=== PATIENT | female | born 1970 | race Caucasian/White ===

== ENCOUNTER 2017-12-31 13:33 | Inpatient (IN) | payer BC ==
[~2017-12-31] VITALS: Ht 157.5 cm; Wt 65.1 kg
[2017-12-31] MEDS ORDERED: IV NORMAL SALINE 1000ML BAG 1,000 ML IV SCH (13:53)
[2017-12-31 13:54] LABS: BILIRUBIN,URINE NEGATIVE (NEG); CLARITY,URINE CLOUDY; COLOR,URINE YELLOW; NITRITE,URINE NEGATIVE (NEG); PROTEIN,URINE 100 mg/dL (NEG-TRACE); UROBILINOGEN,URINE 0.2 mg/dL (0.2 mg/dL)
[2017-12-31] MEDS ORDERED: ONDANSETRON PF 4 MG/2 ML VIAL. IV ONE (14:00)
[2017-12-31] MEDS ORDERED: HYDROmorphone 2 MG/ML VIAL IV ONE (14:00)
[2017-12-31 14:11] LABS: HYALINE CASTS, URINE FEW /HPF; SQUAMOUS EPITHELIAL CELL,UR MOD /LPF
[2017-12-31 14:12] LABS: BACTERIA,URINE 0 /HPF (0-FEW); WBC,URINE >40 /HPF (0-4)
--- NOTE | 2017-12-31 14:14 | PHYS DOC ---
Past Medical History Past Medical History: Anxiety, Depression Additional Past Medical Histor: ADHD Past Surgical History: Hysterectomy (& L oophorectomy) Alcohol Use: Rarely Adult General Chief Complaint Chief Complaint: FLANK PAIN HPI HPI Patient is a 47-year-old female who presents to the emergency department for evaluation. She states she began feeling ill last night, general malaise and some lightheadedness. She developed some right lower and mid abdominal pain last night, which has continued today. She has not had any nausea, vomiting, or diarrhea. She has not had any hematuria or dysuria but has had some urinary frequency. The pain radiates towards her right flank area. There are no alleviating or exacerbating factors to the patient's symptoms except that movement and palpation of her abdomen seemed to worsen her pain. Review of Systems Review of Systems Constitutional: Denies fever or chills [] Eyes: Denies change in visual acuity, redness, or eye pain [] HENT: Denies nasal congestion or sore throat [] Respiratory: Denies cough or shortness of breath [] Cardiovascular: The patient denies any shortness of breath, chest pain, palpitations, or orthopnea [] GI: Denies nausea, vomiting, bloody stools or diarrhea [] : Denies dysuria or hematuria [] Musculoskeletal: Denies back pain or joint pain, other than right flank pain [] Integument: Denies rash or skin lesions [] Neurologic: Denies headache, focal weakness or sensory changes [] Endocrine: Denies polyuria or polydipsia [] All other systems were reviewed and found to be within normal limits, except as documented in this note. Current Medications Current Medications Current Medications Medications (Trade) Dose Ordered Sig/Farooq Start Time Stop Time Status Last Admin Dose Admin Ceftriaxone Sodium 50 ml @ 100 mls/hr 1X ONCE 12/31/17 14:30 12/31/17 14:59 DC Hydromorphone HCl (Dilaudid) 1 mg 1X ONCE 12/31/17 14:00 12/31/17 14:01 DC 12/31/17 14:14 1 MG Ondansetron HCl (Zofran) 4 mg 1X ONCE 12/31/17 14:00 12/31/17 14:01 DC 12/31/17 14:14 4 MG Sodium Chloride 1,000 ml @ 1,000 mls/hr Q1H 12/31/17 13:53 11/22/18 14:52 DC 12/31/17 14:13 1,000 MLS/HR Allergies Allergies Allergies Coded Allergies Type Severity Reaction Last Updated Verified No Known Drug Allergies 12/31/17 No Physical Exam Physical Exam PHYSICAL EXAM: CONSTITUTIONAL: Well developed, well nourished HEAD: normocephalic, atraumatic EENT: PERRL, EOMI. Conjunctivae normal color, sclerae non-icteric; moist mucous membranes. NECK: Supple, non-tender; no meningismus. LUNGS: Lungs CTA, breathing even and unlabored. Normal air movement. HEART: Regular rhythm, tachycardia, No murmur CHEST: No deformity; non-tender ABDOMEN: The abdomen is soft, there is diffuse right-sided tenderness to palpation, both in the right upper quadrant and the right mid and lower abdomen , without rebound tenderness. Bolton sign is absent, although exam is limited secondary to voluntary guarding. The remainder the abdomen is soft and non- tender, no masses or bruits. EXTREM: Normal ROM; no deformity, no calf tenderness. Normal pulses palpable in all extremities. There is no pedal edema. SKIN: No rash; no diaphoresis NEURO: Alert; normal speech and cognition; CN's grossly intact; strength grossly intact without focal deficit. BACK: No reproducible CVA TTP. PSYCHIATRIC: The patient exhibits an anxious affect. Current Patient Data Vital Signs Vital Signs Date Time Temp Pulse Resp B/P (MAP) Pulse Ox O2 Delivery O2 Flow Rate FiO2 12/31/17 14:00 100.1 122 20 146/95 (112) 100 Room Air 100.1 Lab Values Laboratory Tests Test 12/31/17 13:46 12/31/17 14:00 Urine Collection Type Unknown Urine Color Yellow Urine Clarity Cloudy Urine pH 8.0 Urine Specific [place] 1.015 Urine Protein 100 mg/dL (NEG-TRACE) Urine Glucose (UA) Negative mg/dL (NEG) Urine Ketones (Stick) Negative mg/dL (NEG) Urine Blood Moderate (NEG) Urine Nitrite Negative (NEG) Urine Bilirubin Negative (NEG) Urine Urobilinogen Dipstick 0.2 mg/dL (0.2 mg/dL) Urine Leukocyte Esterase Large (NEG) Urine RBC 11-20 /HPF (0-2) Urine WBC >40 /HPF (0-4) Urine Squamous Epithelial Cells Mod /LPF Urine Bacteria 0 /HPF (0-FEW) Urine Hyaline Casts Few /HPF Urine Mucus Mod /LPF White Blood Count 12.1 x10^3/uL (4.0-11.0) H Red Blood Count 4.10 x10^6/uL (3.50-5.40) Hemoglobin 13.8 g/dL (12.0-15.5) Hematocrit 40.0 % (36.0-47.0) Mean Corpuscular Volume 98 fL (79-100) Mean Corpuscular Hemoglobin 34 pg (25-35) Mean Corpuscular Hemoglobin Concent 34 g/dL (31-37) Red Cell Distribution Width 14.0 % (11.5-14.5) Platelet Count 211 x10^3/uL (140-400) Neutrophils (%) (Auto) 85 % (31-73) H Lymphocytes (%) (Auto) 6 % (24-48) L Monocytes (%) (Auto) 8 % (0-9) Eosinophils (%) (Auto) 0 % (0-3) Basophils (%) (Auto) 1 % (0-3) Neutrophils # (Auto) 10.2 x10^3uL (1.8-7.7) H Lymphocytes # (Auto) 0.8 x10^3/uL (1.0-4.8) L Monocytes # (Auto) 1.0 x10^3/uL (0.0-1.1) Eosinophils # (Auto) 0.0 x10^3/uL (0.0-0.7) Basophils # (Auto) 0.1 x10^3/uL (0.0-0.2) Sodium Level 133 mmol/L (136-145) L Potassium Level 4.0 mmol/L (3.5-5.1) Chloride Level 98 mmol/L (98-107) Carbon Dioxide Level 29 mmol/L (21-32) Anion Gap 6 (6-14) Blood Urea Nitrogen 6 mg/dL (7-20) L Creatinine 1.0 mg/dL (0.6-1.0) Estimated GFR (Cockcroft-Gault) 60.0 BUN/Creatinine Ratio 6 (6-20) Glucose Level 127 mg/dL (70-99) H Lactic Acid Level 1.4 mmol/L (0.4-2.0) Calcium Level 9.2 mg/dL (8.5-10.1) Total Bilirubin 0.7 mg/dL (0.2-1.0) Aspartate Amino Transferase (AST) 17 U/L (15-37) Alanine Aminotransferase (ALT) 29 U/L (14-59) Alkaline Phosphatase 91 U/L (46-116) Total Protein 8.1 g/dL (6.4-8.2) Albumin 3.3 g/dL (3.4-5.0) L Albumin/Globulin Ratio 0.7 (1.0-1.7) L Lipase 127 U/L (73-393) Laboratory Tests 12/31/17 14:00 Laboratory Tests 12/31/17 14:00 EKG EKG [] Radiology/Procedures Radiology/Procedures [PROCEDURE: CT ABDOMEN PELVIS WO CONTRAST CT abdomen and pelvis 12/31/2017 CLINICAL INDICATION: Right flank pain, left upper and right lower quadrant pain. COMPARISON: None. TECHNIQUE: Multiple CT images of the abdomen and pelvis were obtained without contrast. *One or more of the following individualized dose reduction techniques were utilized for this examination: 1. Automated exposure control. 2. Adjustment of the mA and/or kV according to patient size. 3. Use of iterative reconstruction technique. FINDINGS: Collapsed left breast implant. Right breast implant is partially visualized. Heart size is normal. Visualized lung bases are clear. Evaluation of the solid abdominal pelvic viscera, lymphadenopathy and vasculature is limited in the absence of intravenous contrast. Peripheral hepatic segment 8 cyst and peripheral junction by 5/6 cyst. Unenhanced contours of the spleen, adrenal glands, gallbladder and pancreas are grossly unremarkable. There is a 3 mm obstructive calculus in the proximal right ureter just distal to the UPJ with mild resultant upstream hydroureteronephrosis and perinephric stranding. 2 additional nonobstructive 3 mm calculi in the superior and inferior pole the right kidney. Left kidney present without hydronephrosis. There are 2 punctate nonobstructive left renal calculi measuring 3 mm. Abdominal aorta normal in caliber. Small and large bowel loops are normal in caliber without obstruction. Appendix is not discretely identified, however no secondary findings of appendicitis of the base of the cecum. No abdominal free fluid. No pneumoperitoneum. Minimally distended unopacified urinary bladder is unremarkable. Prior hysterectomy with the vaginal cuff unremarkable. IMPRESSION: 1. Tiny, 3 mm, proximal right ureteral obstructive calculus with mild upstream hydroureteronephrosis. 2. Right perinephric/periureteral stranding may be reactive to the stone, though ascending urinary tract infection is not excluded. 3. Additional nonobstructive bilateral nephrolithiasis. ] Course & Med Decision Making Course & Med Decision Making 2:05 PM: Initial evaluation in the emergency Department reveals a patient with right-sided abdominal pain, tachycardia, some lightheadedness yesterday. Differential diagnosis includes acute cholecystitis, appendicitis, nephrolithiasis, or UTI. Evaluation for these conditions will be undertaken. Based on the patient's lower abdominal tenderness CT imaging will be obtained first. 3:10 PM:The patient's condition remains stable. I spoke with the hospitalist, who accepted the patient to the hospital for further evaluation and treatment. Urology has been paged as well. Pertinent Labs and Imaging studies reviewed. (See chart for details) [] Dragon Disclaimer Dragon Disclaimer This electronic medical record was generated, in whole or in part, using a voice recognition dictation system. Departure Departure Impression: Primary Impression: Pyelonephritis Additional Impressions: Urinary tract infection Kidney stone on right side Disposition: ADMITTED INPATIENT Admitting Physician: Xie. Burns Condition: STABLE Problem Qualifiers STONEY BOOTH MD Dec 31, 2017 14:14
[2017-12-31 14:22] LABS: BASO # 0.1 x10^3/uL (0.0-0.2); BASO % 1 % (0-3); EOS % 0 % (0-3); HEMOGLOBIN 13.8 g/dL (12.0-15.5); LYMPH # 0.8 x10^3/uL (1.0-4.8); LYMPH % 6 % (24-48); MEAN CORPUSCULAR HEMOGLOBIN 34 pg (25-35); MEAN CORPUSCULAR HGB CONC 34 g/dL (31-37); MEAN CORPUSCULAR VOLUME 98 fL (79-100); MONO % 8 % (0-9); NEUT # 10.2 x10^3uL (1.8-7.7); NEUT % 85 % (31-73); PLATELET COUNT 211 x10^3/uL (140-400); WHITE BLOOD COUNT 12.1 x10^3/uL (4.0-11.0)
[2017-12-31 14:33] LABS: CALCIUM 9.2 mg/dL (8.5-10.1)
--- NOTE | 2017-12-31 14:45 | RAD ---
CT abdomen and pelvis 12/31/2017 CLINICAL INDICATION: Right flank pain, left upper and right lower quadrant pain. COMPARISON: None. TECHNIQUE: Multiple CT images of the abdomen and pelvis were obtained without contrast. *One or more of the following individualized dose reduction techniques were utilized for this examination: 1. Automated exposure control. 2. Adjustment of the mA and/or kV according to patient size. 3. Use of iterative reconstruction technique. FINDINGS: Collapsed left breast implant. Right breast implant is partially visualized. Heart size is normal. Visualized lung bases are clear. Evaluation of the solid abdominal pelvic viscera, lymphadenopathy and vasculature is limited in the absence of intravenous contrast. Peripheral hepatic segment 8 cyst and peripheral junction by 5/6 cyst. Unenhanced contours of the spleen, adrenal glands, gallbladder and pancreas are grossly unremarkable. There is a 3 mm obstructive calculus in the proximal right ureter just distal to the UPJ with mild resultant upstream hydroureteronephrosis and perinephric stranding. 2 additional nonobstructive 3 mm calculi in the superior and inferior pole the right kidney. Left kidney present without hydronephrosis. There are 2 punctate nonobstructive left renal calculi measuring 3 mm. Abdominal aorta normal in caliber. Small and large bowel loops are normal in caliber without obstruction. Appendix is not discretely identified, however no secondary findings of appendicitis of the base of the cecum. No abdominal free fluid. No pneumoperitoneum. Minimally distended unopacified urinary bladder is unremarkable. Prior hysterectomy with the vaginal cuff unremarkable. IMPRESSION: 1. Tiny, 3 mm, proximal right ureteral obstructive calculus with mild upstream hydroureteronephrosis. 2. Right perinephric/periureteral stranding may be reactive to the stone, though ascending urinary tract infection is not excluded. 3. Additional nonobstructive bilateral nephrolithiasis. Electronically signed by: Pineda Grissom MD (12/31/2017 2:41 PM) [facility]
[2017-12-31 14:47] LABS: ALBUMIN 3.3 g/dL (3.4-5.0); ALBUMIN/GLOBULIN RATIO 0.7 (1.0-1.7); TOTAL BILIRUBIN 0.7 mg/dL (0.2-1.0); TOTAL PROTEIN 8.1 g/dL (6.4-8.2)
[2017-12-31] MEDS ORDERED: IV NORMAL SALINE 1000ML BAG 1,000 ML IV ONE (15:15)
[2017-12-31] MEDS ORDERED: KETOROLAC 30 MG/ML VIAL. IV ONE (15:45)
--- NOTE | 2017-12-31 16:13 | PDOC1 ---
History and Physical Date of Admission Date of Admission 12/30/17 Identification/Chief Complaint Chief Complaint rt abd pain Source Source: Chart review, Patient History of Present Illness History of Present Illness HPI HPI Patient is a 47-year-old female who presents to the emergency department for evaluation of RLQ abd pain x1d. pt has h/o kidney stones multiple times years ago, not clear etiology. She started to feel RLQ abd pain last night, stabbing ,intermittent, 10/10, radiating to rt flank. no dysuria, but has frequency, no urgency. no N/V, no diarrhea or constipation. no hematuria. wbd 12. HR 110S. CT: IMPRESSION: 1. Tiny, 3 mm, proximal right ureteral obstructive calculus with mild upstream hydroureteronephrosis. 2. Right perinephric/periureteral stranding may be reactive to the stone, though ascending urinary tract infection is not excluded. 3. Additional nonobstructive bilateral nephrolithiasis. Past Medical History Past Medical History KIDNEY stone Past Surgical History Past Surgical History: Hysterectomy Family History Family History: Hypertension Social History Smoke: 1 pack per day ALCOHOL: heavy (a few bottles of mixed vodka daily ,denies alcohol withdrawal) Drugs: None Current Problem List Problem List Problems Medical Problems: (1) Kidney stone on right side Status: Acute (2) Pyelonephritis Status: Acute (3) Urinary tract infection Status: Acute Current Medications Current Medications Current Medications Medications (Trade) Dose Ordered Sig/Farooq Start Time Stop Time Status Last Admin Dose Admin Ceftriaxone Sodium 50 ml @ 100 mls/hr 1X ONCE 12/31/17 14:30 12/31/17 14:59 DC 12/31/17 15:15 100 MLS/HR Hydromorphone HCl (Dilaudid) 1 mg 1X ONCE 12/31/17 14:00 12/31/17 14:01 DC 12/31/17 14:14 1 MG Ketorolac Tromethamine (Toradol 30mg Vial) 30 mg 1X ONCE 12/31/17 15:45 12/31/17 15:46 DC 12/31/17 15:48 30 MG Ondansetron HCl (Zofran) 4 mg 1X ONCE 12/31/17 14:00 12/31/17 14:01 DC 12/31/17 14:14 4 MG Sodium Chloride 1,000 ml @ 1,000 mls/hr 1X ONCE 12/31/17 15:15 12/31/17 16:14 12/31/17 15:16 1,000 MLS/HR Allergies Allergies Allergies Coded Allergies Type Severity Reaction Last Updated Verified No Known Drug Allergies 12/31/17 No ROS Review of System CONSTITUTIONAL: No fever or chills EYES: No recent changes SKIN: No rash or itching CARDIOVASCULAR: No chest pain, syncope, palpitations, or edema RESPIRATORY: No SOB or cough GASTROINTESTINAL: No nausea, vomiting or abdominal pain NEUROLOGICAL: No headaches or weakness ENDOCRINE: No cold or heat intolerance GENITOURINARY: No urgency or frequency of urination MUSCULOSKELETAL: No back pain or joint pain LYMPHATICS: No enlarged lymph nodes PSYCHIATRIC: No anxiety or depression Physical Exam Physical Exam GEN.: No apparent distress. Alert and oriented. HEENT: Head is normocephalic, atraumatic NECK: Supple. LUNGS: Clear to auscultation. HEART: RRR, S1, S2 present. Peripheral pulses intact ABDOMEN: Soft, Positive bowel sounds. RLQ moderate tenderness, mild guarding , no CVA tenderness. EXTREMITIES: Without any cyanosis. NEUROLOGIC: Normal speech, normal tone PSYCHIATRIC: Normal affect, normal mood. SKIN: No ulcerations Vitals Vitals Vital Signs Date Time Temp Pulse Resp B/P (MAP) Pulse Ox O2 Delivery O2 Flow Rate FiO2 12/31/17 15:32 104 18 144/83 (103) 98 Room Air 12/31/17 14:00 100.1 100.1 Labs Labs Laboratory Tests Test 12/31/17 13:46 12/31/17 14:00 Urine Collection Type Unknown Urine Color Yellow Urine Clarity Cloudy Urine pH 8.0 Urine Specific [place] 1.015 Urine Protein 100 mg/dL (NEG-TRACE) Urine Glucose (UA) Negative mg/dL (NEG) Urine Ketones (Stick) Negative mg/dL (NEG) Urine Blood Moderate (NEG) Urine Nitrite Negative (NEG) Urine Bilirubin Negative (NEG) Urine Urobilinogen Dipstick 0.2 mg/dL (0.2 mg/dL) Urine Leukocyte Esterase Large (NEG) Urine RBC 11-20 /HPF (0-2) Urine WBC >40 /HPF (0-4) Urine Squamous Epithelial Cells Mod /LPF Urine Bacteria 0 /HPF (0-FEW) Urine Hyaline Casts Few /HPF Urine Mucus Mod /LPF White Blood Count 12.1 x10^3/uL (4.0-11.0) Red Blood Count 4.10 x10^6/uL (3.50-5.40) Hemoglobin 13.8 g/dL (12.0-15.5) Hematocrit 40.0 % (36.0-47.0) Mean Corpuscular Volume 98 fL (79-100) Mean Corpuscular Hemoglobin 34 pg (25-35) Mean Corpuscular Hemoglobin Concent 34 g/dL (31-37) Red Cell Distribution Width 14.0 % (11.5-14.5) Platelet Count 211 x10^3/uL (140-400) Neutrophils (%) (Auto) 85 % (31-73) Lymphocytes (%) (Auto) 6 % (24-48) Monocytes (%) (Auto) 8 % (0-9) Eosinophils (%) (Auto) 0 % (0-3) Basophils (%) (Auto) 1 % (0-3) Neutrophils # (Auto) 10.2 x10^3uL (1.8-7.7) Lymphocytes # (Auto) 0.8 x10^3/uL (1.0-4.8) Monocytes # (Auto) 1.0 x10^3/uL (0.0-1.1) Eosinophils # (Auto) 0.0 x10^3/uL (0.0-0.7) Basophils # (Auto) 0.1 x10^3/uL (0.0-0.2) Sodium Level 133 mmol/L (136-145) Potassium Level 4.0 mmol/L (3.5-5.1) Chloride Level 98 mmol/L (98-107) Carbon Dioxide Level 29 mmol/L (21-32) Anion Gap 6 (6-14) Blood Urea Nitrogen 6 mg/dL (7-20) Creatinine 1.0 mg/dL (0.6-1.0) Estimated GFR (Cockcroft-Gault) 60.0 BUN/Creatinine Ratio 6 (6-20) Glucose Level 127 mg/dL (70-99) Lactic Acid Level 1.4 mmol/L (0.4-2.0) Calcium Level 9.2 mg/dL (8.5-10.1) Total Bilirubin 0.7 mg/dL (0.2-1.0) Aspartate Amino Transf (AST/SGOT) 17 U/L (15-37) Alanine Aminotransferase (ALT/SGPT) 29 U/L (14-59) Alkaline Phosphatase 91 U/L (46-116) Total Protein 8.1 g/dL (6.4-8.2) Albumin 3.3 g/dL (3.4-5.0) Albumin/Globulin Ratio 0.7 (1.0-1.7) Lipase 127 U/L (73-393) Laboratory Tests Test 12/31/17 13:46 12/31/17 14:00 Urine Collection Type Unknown Urine Color Yellow Urine Clarity Cloudy Urine pH 8.0 Urine Specific [place] 1.015 Urine Protein 100 mg/dL (NEG-TRACE) Urine Glucose (UA) Negative mg/dL (NEG) Urine Ketones (Stick) Negative mg/dL (NEG) Urine Blood Moderate (NEG) Urine Nitrite Negative (NEG) Urine Bilirubin Negative (NEG) Urine Urobilinogen Dipstick 0.2 mg/dL (0.2 mg/dL) Urine Leukocyte Esterase Large (NEG) Urine RBC 11-20 /HPF (0-2) Urine WBC >40 /HPF (0-4) Urine Squamous Epithelial Cells Mod /LPF Urine Bacteria 0 /HPF (0-FEW) Urine Hyaline Casts Few /HPF Urine Mucus Mod /LPF White Blood Count 12.1 x10^3/uL (4.0-11.0) Red Blood Count 4.10 x10^6/uL (3.50-5.40) Hemoglobin 13.8 g/dL (12.0-15.5) Hematocrit 40.0 % (36.0-47.0) Mean Corpuscular Volume 98 fL (79-100) Mean Corpuscular Hemoglobin 34 pg (25-35) Mean Corpuscular Hemoglobin Concent 34 g/dL (31-37) Red Cell Distribution Width 14.0 % (11.5-14.5) Platelet Count 211 x10^3/uL (140-400) Neutrophils (%) (Auto) 85 % (31-73) Lymphocytes (%) (Auto) 6 % (24-48) Monocytes (%) (Auto) 8 % (0-9) Eosinophils (%) (Auto) 0 % (0-3) Basophils (%) (Auto) 1 % (0-3) Neutrophils # (Auto) 10.2 x10^3uL (1.8-7.7) Lymphocytes # (Auto) 0.8 x10^3/uL (1.0-4.8) Monocytes # (Auto) 1.0 x10^3/uL (0.0-1.1) Eosinophils # (Auto) 0.0 x10^3/uL (0.0-0.7) Basophils # (Auto) 0.1 x10^3/uL (0.0-0.2) Sodium Level 133 mmol/L (136-145) Potassium Level 4.0 mmol/L (3.5-5.1) Chloride Level 98 mmol/L (98-107) Carbon Dioxide Level 29 mmol/L (21-32) Anion Gap 6 (6-14) Blood Urea Nitrogen 6 mg/dL (7-20) Creatinine 1.0 mg/dL (0.6-1.0) Estimated GFR (Cockcroft-Gault) 60.0 BUN/Creatinine Ratio 6 (6-20) Glucose Level 127 mg/dL (70-99) Lactic Acid Level 1.4 mmol/L (0.4-2.0) Calcium Level 9.2 mg/dL (8.5-10.1) Total Bilirubin 0.7 mg/dL (0.2-1.0) Aspartate Amino Transf (AST/SGOT) 17 U/L (15-37) Alanine Aminotransferase (ALT/SGPT) 29 U/L (14-59) Alkaline Phosphatase 91 U/L (46-116) Total Protein 8.1 g/dL (6.4-8.2) Albumin 3.3 g/dL (3.4-5.0) Albumin/Globulin Ratio 0.7 (1.0-1.7) Lipase 127 U/L (73-393) VTE Prophylaxis Ordered VTE Prophylaxis Devices: Yes VTE Pharmacological Prophylaxi: Yes Assessment/Plan Assessment/Plan RLQ pain with 3mm, proximal right ureteral obstructive calculus with mild upstream hydroureteronephrosis. UTI , sepsis nonobstructive bilateral nephrolithiasis. h/o multiple kidney stones anxiety depression mild malnutrition alcoholism tobaccoism plan; uro consult got IVF bolus in ER, cont NS 125cc/h regular diet flomax pain control dvt ppx ativan prn cefriaxone for now, fu ucx ,bcx JOSÉ DOMINGUEZ MD Dec 31, 2017 16:13
[2017-12-31] MEDS ORDERED: DOCUSATE SODIUM 100 MG CAPSULE. PO PRN (16:15)
[2017-12-31] MEDS ORDERED: ACETAMINOPHEN 325 MG TABLET. PO PRN (16:15)
[2017-12-31] MEDS ORDERED: ONDANSETRON PF 4 MG/2 ML VIAL. IV PRN (16:15)
[2017-12-31] MEDS ORDERED: traMADol 50 MG TABLET PO PRN (16:15)
[2017-12-31] MEDS ORDERED: MORPHINE SULFATE 2 MG/ML VIAL. IV PRN (16:15)
[2017-12-31] MEDS ORDERED: KETOROLAC 15 MG/ML VIAL. IV PRN (16:15)
[2017-12-31] MEDS: HYDROcodone/APAP 5/325MG 1 TAB TABLET PO PRN ×2 (16:58→22:50)
[2017-12-31] MEDS: IV NORMAL SALINE 1000ML BAG 1,000 ML IV SCH ×2 (16:59→23:59)
[2017-12-31 17:40] VITALS: BP 141/92
[2017-12-31] MEDS: ENOXAPARIN 40 MG/0.4 ML SYRINGE. SQ SCH (18:12)
[2017-12-31] MEDS ORDERED: FLUO40CA9 PO (18:28)
[2017-12-31] MEDS ORDERED: DEXT20TA2 PO (18:29)
[2017-12-31 19:00] VITALS: BP 118/75
[2017-12-31] MEDS: TAMSULOSIN 0.4 MG CAP.ER.24H. PO SCH (20:51)
[2017-12-31] MEDS: NICOTINE 14MG PATCH. TD PRN (20:51)
[2017-12-31 23:00] VITALS: BP 159/90
[2018-01-01] VITALS (11 sets, daily range): BP systolic 115–146; BP diastolic 61–87
[2018-01-01 04:32] LABS: BASO # 0.1 x10^3/uL (0.0-0.2); BASO % 1 % (0-3); EOS % 0 % (0-3); HEMATOCRIT 34.3 % (36.0-47.0); HEMOGLOBIN 11.8 g/dL (12.0-15.5); LYMPH # 0.8 x10^3/uL (1.0-4.8); LYMPH % 8 % (24-48); MEAN CORPUSCULAR HEMOGLOBIN 34 pg (25-35); MEAN CORPUSCULAR HGB CONC 35 g/dL (31-37); MEAN CORPUSCULAR VOLUME 99 fL (79-100); MONO # 1.1 x10^3/uL (0.0-1.1); MONO % 10 % (0-9); NEUT # 8.2 x10^3uL (1.8-7.7); NEUT % 81 % (31-73); PLATELET COUNT 175 x10^3/uL (140-400); RED BLOOD COUNT 3.48 x10^6/uL (3.50-5.40); RED CELL DISTRIBUTION WIDTH 13.8 % (11.5-14.5); WHITE BLOOD COUNT 10.2 x10^3/uL (4.0-11.0)
[2018-01-01 04:41] LABS: CALCIUM 7.8 mg/dL (8.5-10.1); CREATININE 0.8 mg/dL (0.6-1.0); GFR 77.6; POTASSIUM 3.8 mmol/L (3.5-5.1)
[2018-01-01] MEDS ORDERED: MORPHINE SULFATE 2 MG/ML VIAL. IV PRN (07:15)
[2018-01-01] MEDS ORDERED: LIDOCAINE 1% PF 2 ML VIAL. ID PRN (07:15)
[2018-01-01] MEDS ORDERED: PROCHLORPERAZINE 10 MG/2 ML VIAL. IV PRN (07:15)
[2018-01-01] MEDS ORDERED: IV RINGERS,LACTATED 1000ML 1,000 ML IV SCH (07:15)
[2018-01-01] MEDS ORDERED: fentaNYL PF VIAL 100 MCG/2 ML VIAL IV PRN ×2 (07:15)
[2018-01-01] MEDS ORDERED: HYDROmorphone 2 MG/ML VIAL IV PRN (07:15)
[2018-01-01] MEDS ORDERED: ONDANSETRON PF 4 MG/2 ML VIAL. IV PRN (07:15)
[2018-01-01] MEDS ORDERED: IOHEXOL 300 MG/ML 100ML VIAL. ONE (07:56)
[2018-01-01] MEDS: IV NORMAL SALINE 1000ML BAG 1,000 ML IV SCH ×3 (08:14→22:56)
[2018-01-01] MEDS: FLUoxetine HCL 20 MG CAPSULE PO SCH (08:18)
[2018-01-01] MEDS ORDERED: NON FORMULARY ITEM (Dextroamphetamine/Amphetamine (Adderall 20 Mg Tablet) 20 MG) PO SCH (09:00)
[2018-01-01] MEDS ORDERED: cefTRIAXone SODIUM 2 GM in IV DEXTROSE 5% 100ML 100 ML IV SCH (09:00)
--- NOTE | 2018-01-01 09:06 | PDOC2 ---
UROLOGY CONSULT Date of Consult Date of Consult DATE: 01/01/18 TIME: 08:57 Reason for Consult Reason for Consult: right ureteral stone, fever Referring Physician Referring Physician: Dr. Madsen Identification/Chief Complaint Chief Complaint right abdominal pain Source Source: Chart review, Patient History of Present Illness Reason for Visit: 47 yo female with right flank pain since 12/30/17. Pain started suddenly and was severe. Pain radiates to RLQ. She denies urgency, frequency, dysuria. She went to the ER where CT was obtained - I reviewed images - there is right hydronephrosis due to 3 mm proximal right ureter stone. Also two 3 mm stones in each kidney. She has had fevers since admission - 100.1 on 12/31, 101.9 on . She reports prior kidney stones and procedures. Past Medical History Cardiovascular: No pertinent hx Renal/: Other (kidney stones) Past Surgical History Past Surgical History: Hysterectomy Family History Family History: Hypertension Social History 1 pack per day ALCOHOL: heavy (a few bottles of mixed vodka daily ,denies alcohol withdrawal) Drugs: None Current Medications Current Medications Current Medications Acetaminophen (Tylenol) 650 mg PRN Q6HRS PRN PO FEVER; Start 12/31/17 at 16:15 Acetaminophen/ Hydrocodone Bitart (Lortab 5/325) 1 tab PRN Q4HRS PRN PO SEVERE PAIN Last administered on 12/31/17at 22:50; Start 12/31/17 at 16:15 Ceftriaxone Sodium 2 gm/ Dextrose 100 ml @ 200 mls/hr DAILY IV ; Start at 09:00; Status UNV Ceftriaxone Sodium 50 ml @ 100 mls/hr 1X ONCE IV Last administered on at 15:15; Start 12/31/17 at 14:30; Stop 12/31/17 at 14:59; Status DC Ceftriaxone Sodium (Rocephin) 2 gm Q24H IVP ; Start 01/01/18 at 15:00 Docusate Sodium (Colace) 100 mg PRN DAILY PRN PO CONSTIPATION; Start 12/31/17 at 16:15 Enoxaparin Sodium (Lovenox 40mg Syringe) 40 mg Q24H SQ Last administered on at 18:12; Start 12/31/17 at 17:00 Fentanyl Citrate (Fentanyl 2ml Vial) 25 mcg PRN Q5MIN PRN IV MILD PAIN; Start 01/01/18 at 07:15; Stop 01/02/18 at 07:14 Fentanyl Citrate (Fentanyl 2ml Vial) 50 mcg PRN Q5MIN PRN IV MODERATE TO SEVERE PAIN; Start 01/01/18 at 07:15; Stop 01/02/18 at 07:14 Fluoxetine HCl (PROzac) 40 mg DAILY PO Last administered on 01/01/18at 08:18; Start 01/01/18 at 09:00 Hydromorphone HCl (Dilaudid) 0.5 mg PRN Q10MIN PRN IV SEV PAIN, Second choice; Start 01/01/18 at 07:15; Stop 01/02/18 at 07:14 Hydromorphone HCl (Dilaudid) 1 mg 1X ONCE IV Last administered on 12/31/17at 14:14; Start 12/31/17 at 14:00; Stop 12/31/17 at 14:01; Status DC Iohexol (Omnipaque 300 Mg/ml) 100 ml ShinyByteK-MED ONCE .ROUTE ; Start 01/01/18 at 07 :56; Stop 01/01/18 at 07:57; Status DC Ketorolac Tromethamine (Toradol 15mg Vial) 15 mg PRN Q6HRS PRN IV PAIN; Start 12/31/17 at 16:15; Stop 01/05/18 at 16:14 Ketorolac Tromethamine (Toradol 30mg Vial) 30 mg 1X ONCE IV Last administered on 12/31/17at 15:48; Start 12/31/17 at 15:45; Stop 12/31/17 at 15:46; Status DC Lidocaine HCl (Xylocaine-Mpf 1% 2ml Vial) 2 ml 1X PRN PRN ID IV START; Start 01/01/18 at 07:15; Stop 01/02/18 at 07:14 Lorazepam (Ativan) 2 mg PRN Q4HRS PRN IV ANXIETY / AGITATION Last administered on 01/01/18at 00:28; Start 12/31/17 at 16:15 Morphine Sulfate (Morphine Sulfate) 1 mg PRN Q10MIN PRN IV SEVERE PAIN; Start 01/01/18 at 07:15; Stop 01/02/18 at 07:14 Morphine Sulfate (Morphine Sulfate) 2 mg PRN Q2HR PRN IV MODERATE TO SEVERE PAIN; Start 12/31/17 at 16:15 Nicotine (Nicoderm Cq 14mg) 1 patch PRN DAILY PRN TD SMOKING CESSATION Last administered on 12/31/17at 20:51; Start 12/31/17 at 19:15 Non-Formulary Medication (Dextroamphetamine/ Amphetamine (Adderall 20 Mg Tablet) ) 20 mg DAILY PO ; Start 01/01/18 at 09:00; Status Cancel Ondansetron HCl (Zofran) 4 mg 1X ONCE IV Last administered on 12/31/17at 14:14 ; Start 12/31/17 at 14:00; Stop 12/31/17 at 14:01; Status DC Ondansetron HCl (Zofran) 4 mg PRN Q6HRS PRN IV NAUSEA/VOMITING; Start at 16:15 Ondansetron HCl (Zofran) 4 mg PRN Q6HRS PRN IV NAUSEA/VOMITING; Start at 07:15; Stop 01/02/18 at 07:14 Prochlorperazine Edisylate (Compazine) 5 mg PACU PRN PRN IV NAUSEA, MRX1; Start 01/01/18 at 07:15; Stop 01/02/18 at 07:14 Ringer's Solution 1,000 ml @ 30 mls/hr Q24H IV ; Start 01/01/18 at 07:15; Stop 01/01/18 at 19:14 Sodium Chloride 1,000 ml @ 125 mls/hr Q8H IV Last administered on 01/01/18at 08:14; Start 12/31/17 at 16:15 Sodium Chloride 1,000 ml @ 1,000 mls/hr 1X ONCE IV Last administered on 12/31at 15:16; Start 12/31/17 at 15:15; Stop 12/31/17 at 16:14; Status DC Sodium Chloride 1,000 ml @ 1,000 mls/hr Q1H IV Last administered on at 14:13; Start 12/31/17 at 13:53; Stop 12/31/17 at 14:52; Status DC Tamsulosin HCl (Flomax) 0.4 mg QHS PO Last administered on 12/31/17at 20:51; Start 12/31/17 at 21:00 Tramadol HCl (Ultram) 50 mg PRN Q6HRS PRN PO MILD TO MODERATE PAIN Last administered on 12/31/17at 20:51; Start 12/31/17 at 16:15 Allergies Allergies: Coded Allergies: No Known Drug Allergies (Unverified , 12/31/17) ROS Review Of Systems: Ecept as listed in HPI: CONSTITUTIONAL: + fever EYES: No recent changes SKIN: No rash or itching CARDIOVASCULAR: No chest pain, syncope, palpitations, or edema RESPIRATORY: No SOB or cough GASTROINTESTINAL: No nausea, vomiting or abdominal pain NEUROLOGICAL: No headaches or weakness ENDOCRINE: No cold or heat intolerance GENITOURINARY: No urgency or frequency of urination MUSCULOSKELETAL: No back pain or joint pain LYMPHATICS: No enlarged lymph nodes PSYCHIATRIC: No anxiety or depression Physical Exam Physical Exam: General: Pleasant, no acute distress, well groomed Eyes: conjunctiva anicteric, eyes full range of motion ENT: moist oral mucosa, normal dentition Neck: Trachea midline, no masses Respiratory: unlabored breathing, not using accessory muscles, no crackles or wheezes Cardiovascular: Regular rate and rhythm, no peripheral edema Abdomen: mild RLQ tender, nondistended, no hepatosplenomegaly, no masses. mild right flank tenderness Skin: no rashes or skin lesions on visualized skin Psych: normal mood, affect. Alert and oriented x 3. Vitals VITALS Vital Signs Date Time Temp Pulse Resp B/P (MAP) Pulse Ox O2 Delivery O2 Flow Rate FiO2 01/01/18 07:00 101.9 112 18 126/84 (98) 90 Room Air 101.9 Labs Labs Laboratory Tests Test 12/31/17 13:46 12/31/17 14:00 01/01/18 04:00 Urine Collection Type Unknown Urine Color Yellow Urine Clarity Cloudy Urine pH 8.0 Urine Specific [place] 1.015 Urine Protein 100 mg/dL (NEG-TRACE) Urine Glucose (UA) Negative mg/dL (NEG) Urine Ketones (Stick) Negative mg/dL (NEG) Urine Blood Moderate (NEG) Urine Nitrite Negative (NEG) Urine Bilirubin Negative (NEG) Urine Urobilinogen Dipstick 0.2 mg/dL (0.2 mg/dL) Urine Leukocyte Esterase Large (NEG) Urine RBC 11-20 /HPF (0-2) Urine WBC >40 /HPF (0-4) Urine Squamous Epithelial Cells Mod /LPF Urine Bacteria 0 /HPF (0-FEW) Urine Hyaline Casts Few /HPF Urine Mucus Mod /LPF White Blood Count 12.1 x10^3/uL (4.0-11.0) 10.2 x10^3/uL (4.0-11.0) Red Blood Count 4.10 x10^6/uL (3.50-5.40) 3.48 x10^6/uL (3.50-5.40) Hemoglobin 13.8 g/dL (12.0-15.5) 11.8 g/dL (12.0-15.5) Hematocrit 40.0 % (36.0-47.0) 34.3 % (36.0-47.0) Mean Corpuscular Volume 98 fL (79-100) 99 fL (79-100) Mean Corpuscular Hemoglobin 34 pg (25-35) 34 pg (25-35) Mean Corpuscular Hemoglobin Concent 34 g/dL (31-37) 35 g/dL (31-37) Red Cell Distribution Width 14.0 % (11.5-14.5) 13.8 % (11.5-14.5) Platelet Count 211 x10^3/uL (140-400) 175 x10^3/uL (140-400) Neutrophils (%) (Auto) 85 % (31-73) 81 % (31-73) Lymphocytes (%) (Auto) 6 % (24-48) 8 % (24-48) Monocytes (%) (Auto) 8 % (0-9) 10 % (0-9) Eosinophils (%) (Auto) 0 % (0-3) 0 % (0-3) Basophils (%) (Auto) 1 % (0-3) 1 % (0-3) Neutrophils # (Auto) 10.2 x10^3uL (1.8-7.7) 8.2 x10^3uL (1.8-7.7) Lymphocytes # (Auto) 0.8 x10^3/uL (1.0-4.8) 0.8 x10^3/uL (1.0-4.8) Monocytes # (Auto) 1.0 x10^3/uL (0.0-1.1) 1.1 x10^3/uL (0.0-1.1) Eosinophils # (Auto) 0.0 x10^3/uL (0.0-0.7) 0.0 x10^3/uL (0.0-0.7) Basophils # (Auto) 0.1 x10^3/uL (0.0-0.2) 0.1 x10^3/uL (0.0-0.2) Sodium Level 133 mmol/L (136-145) 134 mmol/L (136-145) Potassium Level 4.0 mmol/L (3.5-5.1) 3.8 mmol/L (3.5-5.1) Chloride Level 98 mmol/L (98-107) 102 mmol/L (98-107) Carbon Dioxide Level 29 mmol/L (21-32) 25 mmol/L (21-32) Anion Gap 6 (6-14) 7 (6-14) Blood Urea Nitrogen 6 mg/dL (7-20) 7 mg/dL (7-20) Creatinine 1.0 mg/dL (0.6-1.0) 0.8 mg/dL (0.6-1.0) Estimated GFR (Cockcroft-Gault) 60.0 77.6 BUN/Creatinine Ratio 6 (6-20) Glucose Level 127 mg/dL (70-99) 112 mg/dL (70-99) Lactic Acid Level 1.4 mmol/L (0.4-2.0) Calcium Level 9.2 mg/dL (8.5-10.1) 7.8 mg/dL (8.5-10.1) Total Bilirubin 0.7 mg/dL (0.2-1.0) Aspartate Amino Transf (AST/SGOT) 17 U/L (15-37) Alanine Aminotransferase (ALT/SGPT) 29 U/L (14-59) Alkaline Phosphatase 91 U/L (46-116) Total Protein 8.1 g/dL (6.4-8.2) Albumin 3.3 g/dL (3.4-5.0) Albumin/Globulin Ratio 0.7 (1.0-1.7) Lipase 127 U/L (73-393) Laboratory Tests Test 12/31/17 13:46 12/31/17 14:00 01/01/18 04:00 Urine Collection Type Unknown Urine Color Yellow Urine Clarity Cloudy Urine pH 8.0 Urine Specific [place] 1.015 Urine Protein 100 mg/dL (NEG-TRACE) Urine Glucose (UA) Negative mg/dL (NEG) Urine Ketones (Stick) Negative mg/dL (NEG) Urine Blood Moderate (NEG) Urine Nitrite Negative (NEG) Urine Bilirubin Negative (NEG) Urine Urobilinogen Dipstick 0.2 mg/dL (0.2 mg/dL) Urine Leukocyte Esterase Large (NEG) Urine RBC 11-20 /HPF (0-2) Urine WBC >40 /HPF (0-4) Urine Squamous Epithelial Cells Mod /LPF Urine Bacteria 0 /HPF (0-FEW) Urine Hyaline Casts Few /HPF Urine Mucus Mod /LPF White Blood Count 12.1 x10^3/uL (4.0-11.0) 10.2 x10^3/uL (4.0-11.0) Red Blood Count 4.10 x10^6/uL (3.50-5.40) 3.48 x10^6/uL (3.50-5.40) Hemoglobin 13.8 g/dL (12.0-15.5) 11.8 g/dL (12.0-15.5) Hematocrit 40.0 % (36.0-47.0) 34.3 % (36.0-47.0) Mean Corpuscular Volume 98 fL (79-100) 99 fL (79-100) Mean Corpuscular Hemoglobin 34 pg (25-35) 34 pg (25-35) Mean Corpuscular Hemoglobin Concent 34 g/dL (31-37) 35 g/dL (31-37) Red Cell Distribution Width 14.0 % (11.5-14.5) 13.8 % (11.5-14.5) Platelet Count 211 x10^3/uL (140-400) 175 x10^3/uL (140-400) Neutrophils (%) (Auto) 85 % (31-73) 81 % (31-73) Lymphocytes (%) (Auto) 6 % (24-48) 8 % (24-48) Monocytes (%) (Auto) 8 % (0-9) 10 % (0-9) Eosinophils (%) (Auto) 0 % (0-3) 0 % (0-3) Basophils (%) (Auto) 1 % (0-3) 1 % (0-3) Neutrophils # (Auto) 10.2 x10^3uL (1.8-7.7) 8.2 x10^3uL (1.8-7.7) Lymphocytes # (Auto) 0.8 x10^3/uL (1.0-4.8) 0.8 x10^3/uL (1.0-4.8) Monocytes # (Auto) 1.0 x10^3/uL (0.0-1.1) 1.1 x10^3/uL (0.0-1.1) Eosinophils # (Auto) 0.0 x10^3/uL (0.0-0.7) 0.0 x10^3/uL (0.0-0.7) Basophils # (Auto) 0.1 x10^3/uL (0.0-0.2) 0.1 x10^3/uL (0.0-0.2) Sodium Level 133 mmol/L (136-145) 134 mmol/L (136-145) Potassium Level 4.0 mmol/L (3.5-5.1) 3.8 mmol/L (3.5-5.1) Chloride Level 98 mmol/L (98-107) 102 mmol/L (98-107) Carbon Dioxide Level 29 mmol/L (21-32) 25 mmol/L (21-32) Anion Gap 6 (6-14) 7 (6-14) Blood Urea Nitrogen 6 mg/dL (7-20) 7 mg/dL (7-20) Creatinine 1.0 mg/dL (0.6-1.0) 0.8 mg/dL (0.6-1.0) Estimated GFR (Cockcroft-Gault) 60.0 77.6 BUN/Creatinine Ratio 6 (6-20) Glucose Level 127 mg/dL (70-99) 112 mg/dL (70-99) Lactic Acid Level 1.4 mmol/L (0.4-2.0) Calcium Level 9.2 mg/dL (8.5-10.1) 7.8 mg/dL (8.5-10.1) Total Bilirubin 0.7 mg/dL (0.2-1.0) Aspartate Amino Transf (AST/SGOT) 17 U/L (15-37) Alanine Aminotransferase (ALT/SGPT) 29 U/L (14-59) Alkaline Phosphatase 91 U/L (46-116) Total Protein 8.1 g/dL (6.4-8.2) Albumin 3.3 g/dL (3.4-5.0) Albumin/Globulin Ratio 0.7 (1.0-1.7) Lipase 127 U/L (73-393) Assessment/Plan Assessment/Plan Recommend right ureteral stent placement today due to right renal obstruction from stone + fever. Stent procedure reviewed in detail, including risks of stent pain, bleeding, worsening infection, anesthesia risk. Reviewed that after stent placement, infection will need to be fully treated, then return for outpatient surgery in a few weeks for stent removal and laser of right sided stones. She agrees to proceed, all questions answered. LORAINE DAVIS MD Jan 01, 2018 09:06
[2018-01-01] MEDS ORDERED: MIDAZOLAM HCL/PF 2 MG/2 ML VIAL. ONE (09:53)
[2018-01-01] MEDS ORDERED: LIDOCAINE 2% PF Vial for OR 5 ML VIAL. ONE (09:53)
[2018-01-01] MEDS ORDERED: PROPOFOL 20 ML IV ONE (09:53)
[2018-01-01] MEDS ORDERED: ONDANSETRON PF 4 MG/2 ML VIAL. ONE (09:53)
[2018-01-01] MEDS ORDERED: fentaNYL PF VIAL 100 MCG/2 ML VIAL ONE (09:53)
[2018-01-01] MEDS ORDERED: DEXAMETHASONE SOD PHOS 20 MG/5 ML VIAL. ONE (09:53)
[2018-01-01] MEDS ORDERED: PHENYLEPHRINE in 0.9% NACL PF 1 MG/10 ML SYRINGE. IV ONE (11:11)
[2018-01-01] MEDS ORDERED: ceFAZolin SODIUM 1 GM VIAL ONE (11:12)
--- NOTE | 2018-01-01 11:34 | PDOC4 ---
OPERATIVE NOTE Date: Date: Jan 01, 2018 Pre-Op Diagnosis: right ureteral stone fever Post-Op Diagnosis: same Procedure Performed: cystoscopy, right ureteral stent placement right retrograde pyelogram Surgeon: Loraine Davis MD Anesthesia Type: general Blood Loss: 0 Specimans Obtained: right kidney urine for culture Findings: mild right hydronephrosis. No sign of infection in bladder. No pus in bladder or kidney. Complications: none Operative Note: See dictated operative note. return to floor for further management of fever. unclear if fever due to urine tract infection. Will need definitive stone treatment (ureteroscopy) and stent removal as outpatient at a later date. LORAINE DAVIS MD Jan 01, 2018 11:34
--- NOTE | 2018-01-01 11:40 | OP ---
DATE OF SURGERY: 01/01/2018 SURGEON: Loraine Davis MD SEMI DRIVER: None. PREOPERATIVE DIAGNOSES: 1. Right ureteral stone with hydronephrosis. 2. Fever. POSTOPERATIVE DIAGNOSES: 1. Right ureteral stone with hydronephrosis. 2. Fever. PROCEDURE PERFORMED: Cystoscopy with right ureteral stent placement and right retrograde pyelogram. ANESTHESIA TYPE: General. DESCRIPTION OF PROCEDURE: This is a 47-year-old female who was admitted for fever and right ureteral stone. After discussion of risks, benefits and alternatives, she agreed to the above procedure. Informed consent was obtained. The patient was taken to the operating room. General anesthesia was induced. She was placed in dorsal lithotomy position and sterilely prepped and draped. A timeout was performed. A rigid cystoscope was advanced through the urethra and into the bladder. The bladder appeared normal without erythema. The right ureteral orifice was cannulated with a guidewire and advanced up into the renal pelvis. A ureteral catheter was advanced over the wire and then a specimen of urine was collected and sent for culture. A right retrograde pyelogram was performed, which demonstrated mild right hydronephrosis with extrarenal pelvis. No stones were visible on fluoroscopy. The guidewire was replaced through the ureteral catheter and a 6 x 22 cm ureteral stent was advanced over the wire with appropriate curl noted on both ends of the stent. The bladder contents were emptied. The string was removed from the stent prior to placement. The patient was then awakened and taken to the recovery room in stable condition. BLOOD LOSS: None. COMPLICATIONS: None. SPECIMEN: Right kidney urine for culture. DISPOSITION: The patient can return to the floor for further management of her fever, unclear if due to stone/urinary tract infection. She will need definitive stone management as an outpatient at a later date. LORAINE DAVIS MD DR: JEWELL/rahul JOB#: [id number] / [id number]
--- NOTE | 2018-01-01 13:10 | PDOC ---
PROGRESS NOTES Chief Complaint Chief Complaint RLQ pain with 3mm, proximal right ureteral obstructive calculus with mild upstream hydroureteronephrosis s/p cystoscopy and rt ureteral stent placement UTI , sepsis nonobstructive bilateral nephrolithiasis. h/o multiple kidney stones anxiety depression mild malnutrition alcoholism PTSD tobaccoism plan; uro consulted, stent placed today got IVF bolus in ER, cont NS 125cc/h regular diet flomax pain control dvt ppx ativan prn cefriaxone for now, fu ucx ,bcx History of Present Illness History of Present Illness ROS: no fever, chills, sob or chest pain fever, T 101 wbc slightly better to 10 still RLQ pain Vitals Vitals Vital Signs Date Time Temp Pulse Resp B/P (MAP) Pulse Ox O2 Delivery O2 Flow Rate FiO2 01/01/18 12:49 16 Nasal Cannula 2.0 01/01/18 12:04 100.6 98 118/72 93 100.6 Physical Exam General: Alert, Oriented X3, Cooperative Heart: Regular rate, Normal S1, Normal S2 Lungs: Clear Abdomen: Normal bowel sounds, Soft, Other (RLQ tenderness) Extremities: No clubbing, No cyanosis Skin: No rashes Labs LABS Laboratory Tests Test 12/31/17 13:46 12/31/17 14:00 01/01/18 04:00 Urine Collection Type Unknown Urine Color Yellow Urine Clarity Cloudy Urine pH 8.0 Urine Specific [place] 1.015 Urine Protein 100 mg/dL (NEG-TRACE) Urine Glucose (UA) Negative mg/dL (NEG) Urine Ketones (Stick) Negative mg/dL (NEG) Urine Blood Moderate (NEG) Urine Nitrite Negative (NEG) Urine Bilirubin Negative (NEG) Urine Urobilinogen Dipstick 0.2 mg/dL (0.2 mg/dL) Urine Leukocyte Esterase Large (NEG) Urine RBC 11-20 /HPF (0-2) Urine WBC >40 /HPF (0-4) Urine Squamous Epithelial Cells Mod /LPF Urine Bacteria 0 /HPF (0-FEW) Urine Hyaline Casts Few /HPF Urine Mucus Mod /LPF White Blood Count 12.1 x10^3/uL (4.0-11.0) 10.2 x10^3/uL (4.0-11.0) Red Blood Count 4.10 x10^6/uL (3.50-5.40) 3.48 x10^6/uL (3.50-5.40) Hemoglobin 13.8 g/dL (12.0-15.5) 11.8 g/dL (12.0-15.5) Hematocrit 40.0 % (36.0-47.0) 34.3 % (36.0-47.0) Mean Corpuscular Volume 98 fL (79-100) 99 fL (79-100) Mean Corpuscular Hemoglobin 34 pg (25-35) 34 pg (25-35) Mean Corpuscular Hemoglobin Concent 34 g/dL (31-37) 35 g/dL (31-37) Red Cell Distribution Width 14.0 % (11.5-14.5) 13.8 % (11.5-14.5) Platelet Count 211 x10^3/uL (140-400) 175 x10^3/uL (140-400) Neutrophils (%) (Auto) 85 % (31-73) 81 % (31-73) Lymphocytes (%) (Auto) 6 % (24-48) 8 % (24-48) Monocytes (%) (Auto) 8 % (0-9) 10 % (0-9) Eosinophils (%) (Auto) 0 % (0-3) 0 % (0-3) Basophils (%) (Auto) 1 % (0-3) 1 % (0-3) Neutrophils # (Auto) 10.2 x10^3uL (1.8-7.7) 8.2 x10^3uL (1.8-7.7) Lymphocytes # (Auto) 0.8 x10^3/uL (1.0-4.8) 0.8 x10^3/uL (1.0-4.8) Monocytes # (Auto) 1.0 x10^3/uL (0.0-1.1) 1.1 x10^3/uL (0.0-1.1) Eosinophils # (Auto) 0.0 x10^3/uL (0.0-0.7) 0.0 x10^3/uL (0.0-0.7) Basophils # (Auto) 0.1 x10^3/uL (0.0-0.2) 0.1 x10^3/uL (0.0-0.2) Sodium Level 133 mmol/L (136-145) 134 mmol/L (136-145) Potassium Level 4.0 mmol/L (3.5-5.1) 3.8 mmol/L (3.5-5.1) Chloride Level 98 mmol/L (98-107) 102 mmol/L (98-107) Carbon Dioxide Level 29 mmol/L (21-32) 25 mmol/L (21-32) Anion Gap 6 (6-14) 7 (6-14) Blood Urea Nitrogen 6 mg/dL (7-20) 7 mg/dL (7-20) Creatinine 1.0 mg/dL (0.6-1.0) 0.8 mg/dL (0.6-1.0) Estimated GFR (Cockcroft-Gault) 60.0 77.6 BUN/Creatinine Ratio 6 (6-20) Glucose Level 127 mg/dL (70-99) 112 mg/dL (70-99) Lactic Acid Level 1.4 mmol/L (0.4-2.0) Calcium Level 9.2 mg/dL (8.5-10.1) 7.8 mg/dL (8.5-10.1) Total Bilirubin 0.7 mg/dL (0.2-1.0) Aspartate Amino Transf (AST/SGOT) 17 U/L (15-37) Alanine Aminotransferase (ALT/SGPT) 29 U/L (14-59) Alkaline Phosphatase 91 U/L (46-116) Total Protein 8.1 g/dL (6.4-8.2) Albumin 3.3 g/dL (3.4-5.0) Albumin/Globulin Ratio 0.7 (1.0-1.7) Lipase 127 U/L (73-393) Assessment and Plan Assessmemt and Plan Problems Medical Problems: (1) Kidney stone on right side Status: Acute (2) Pyelonephritis Status: Acute (3) Urinary tract infection Status: Acute Comment Review of Relevant I have reviewed the following items beka (where applicable) has been applied. Labs Laboratory Tests Test 12/31/17 13:46 12/31/17 14:00 01/01/18 04:00 Urine Collection Type Unknown Urine Color Yellow Urine Clarity Cloudy Urine pH 8.0 Urine Specific [place] 1.015 Urine Protein 100 mg/dL (NEG-TRACE) Urine Glucose (UA) Negative mg/dL (NEG) Urine Ketones (Stick) Negative mg/dL (NEG) Urine Blood Moderate (NEG) Urine Nitrite Negative (NEG) Urine Bilirubin Negative (NEG) Urine Urobilinogen Dipstick 0.2 mg/dL (0.2 mg/dL) Urine Leukocyte Esterase Large (NEG) Urine RBC 11-20 /HPF (0-2) Urine WBC >40 /HPF (0-4) Urine Squamous Epithelial Cells Mod /LPF Urine Bacteria 0 /HPF (0-FEW) Urine Hyaline Casts Few /HPF Urine Mucus Mod /LPF White Blood Count 12.1 x10^3/uL (4.0-11.0) 10.2 x10^3/uL (4.0-11.0) Red Blood Count 4.10 x10^6/uL (3.50-5.40) 3.48 x10^6/uL (3.50-5.40) Hemoglobin 13.8 g/dL (12.0-15.5) 11.8 g/dL (12.0-15.5) Hematocrit 40.0 % (36.0-47.0) 34.3 % (36.0-47.0) Mean Corpuscular Volume 98 fL (79-100) 99 fL (79-100) Mean Corpuscular Hemoglobin 34 pg (25-35) 34 pg (25-35) Mean Corpuscular Hemoglobin Concent 34 g/dL (31-37) 35 g/dL (31-37) Red Cell Distribution Width 14.0 % (11.5-14.5) 13.8 % (11.5-14.5) Platelet Count 211 x10^3/uL (140-400) 175 x10^3/uL (140-400) Neutrophils (%) (Auto) 85 % (31-73) 81 % (31-73) Lymphocytes (%) (Auto) 6 % (24-48) 8 % (24-48) Monocytes (%) (Auto) 8 % (0-9) 10 % (0-9) Eosinophils (%) (Auto) 0 % (0-3) 0 % (0-3) Basophils (%) (Auto) 1 % (0-3) 1 % (0-3) Neutrophils # (Auto) 10.2 x10^3uL (1.8-7.7) 8.2 x10^3uL (1.8-7.7) Lymphocytes # (Auto) 0.8 x10^3/uL (1.0-4.8) 0.8 x10^3/uL (1.0-4.8) Monocytes # (Auto) 1.0 x10^3/uL (0.0-1.1) 1.1 x10^3/uL (0.0-1.1) Eosinophils # (Auto) 0.0 x10^3/uL (0.0-0.7) 0.0 x10^3/uL (0.0-0.7) Basophils # (Auto) 0.1 x10^3/uL (0.0-0.2) 0.1 x10^3/uL (0.0-0.2) Sodium Level 133 mmol/L (136-145) 134 mmol/L (136-145) Potassium Level 4.0 mmol/L (3.5-5.1) 3.8 mmol/L (3.5-5.1) Chloride Level 98 mmol/L (98-107) 102 mmol/L (98-107) Carbon Dioxide Level 29 mmol/L (21-32) 25 mmol/L (21-32) Anion Gap 6 (6-14) 7 (6-14) Blood Urea Nitrogen 6 mg/dL (7-20) 7 mg/dL (7-20) Creatinine 1.0 mg/dL (0.6-1.0) 0.8 mg/dL (0.6-1.0) Estimated GFR (Cockcroft-Gault) 60.0 77.6 BUN/Creatinine Ratio 6 (6-20) Glucose Level 127 mg/dL (70-99) 112 mg/dL (70-99) Lactic Acid Level 1.4 mmol/L (0.4-2.0) Calcium Level 9.2 mg/dL (8.5-10.1) 7.8 mg/dL (8.5-10.1) Total Bilirubin 0.7 mg/dL (0.2-1.0) Aspartate Amino Transf (AST/SGOT) 17 U/L (15-37) Alanine Aminotransferase (ALT/SGPT) 29 U/L (14-59) Alkaline Phosphatase 91 U/L (46-116) Total Protein 8.1 g/dL (6.4-8.2) Albumin 3.3 g/dL (3.4-5.0) Albumin/Globulin Ratio 0.7 (1.0-1.7) Lipase 127 U/L (73-393) Laboratory Tests Test 12/31/17 13:46 12/31/17 14:00 01/01/18 04:00 Urine Collection Type Unknown Urine Color Yellow Urine Clarity Cloudy Urine pH 8.0 Urine Specific [place] 1.015 Urine Protein 100 mg/dL (NEG-TRACE) Urine Glucose (UA) Negative mg/dL (NEG) Urine Ketones (Stick) Negative mg/dL (NEG) Urine Blood Moderate (NEG) Urine Nitrite Negative (NEG) Urine Bilirubin Negative (NEG) Urine Urobilinogen Dipstick 0.2 mg/dL (0.2 mg/dL) Urine Leukocyte Esterase Large (NEG) Urine RBC 11-20 /HPF (0-2) Urine WBC >40 /HPF (0-4) Urine Squamous Epithelial Cells Mod /LPF Urine Bacteria 0 /HPF (0-FEW) Urine Hyaline Casts Few /HPF Urine Mucus Mod /LPF White Blood Count 12.1 x10^3/uL (4.0-11.0) 10.2 x10^3/uL (4.0-11.0) Red Blood Count 4.10 x10^6/uL (3.50-5.40) 3.48 x10^6/uL (3.50-5.40) Hemoglobin 13.8 g/dL (12.0-15.5) 11.8 g/dL (12.0-15.5) Hematocrit 40.0 % (36.0-47.0) 34.3 % (36.0-47.0) Mean Corpuscular Volume 98 fL (79-100) 99 fL (79-100) Mean Corpuscular Hemoglobin 34 pg (25-35) 34 pg (25-35) Mean Corpuscular Hemoglobin Concent 34 g/dL (31-37) 35 g/dL (31-37) Red Cell Distribution Width 14.0 % (11.5-14.5) 13.8 % (11.5-14.5) Platelet Count 211 x10^3/uL (140-400) 175 x10^3/uL (140-400) Neutrophils (%) (Auto) 85 % (31-73) 81 % (31-73) Lymphocytes (%) (Auto) 6 % (24-48) 8 % (24-48) Monocytes (%) (Auto) 8 % (0-9) 10 % (0-9) Eosinophils (%) (Auto) 0 % (0-3) 0 % (0-3) Basophils (%) (Auto) 1 % (0-3) 1 % (0-3) Neutrophils # (Auto) 10.2 x10^3uL (1.8-7.7) 8.2 x10^3uL (1.8-7.7) Lymphocytes # (Auto) 0.8 x10^3/uL (1.0-4.8) 0.8 x10^3/uL (1.0-4.8) Monocytes # (Auto) 1.0 x10^3/uL (0.0-1.1) 1.1 x10^3/uL (0.0-1.1) Eosinophils # (Auto) 0.0 x10^3/uL (0.0-0.7) 0.0 x10^3/uL (0.0-0.7) Basophils # (Auto) 0.1 x10^3/uL (0.0-0.2) 0.1 x10^3/uL (0.0-0.2) Sodium Level 133 mmol/L (136-145) 134 mmol/L (136-145) Potassium Level 4.0 mmol/L (3.5-5.1) 3.8 mmol/L (3.5-5.1) Chloride Level 98 mmol/L (98-107) 102 mmol/L (98-107) Carbon Dioxide Level 29 mmol/L (21-32) 25 mmol/L (21-32) Anion Gap 6 (6-14) 7 (6-14) Blood Urea Nitrogen 6 mg/dL (7-20) 7 mg/dL (7-20) Creatinine 1.0 mg/dL (0.6-1.0) 0.8 mg/dL (0.6-1.0) Estimated GFR (Cockcroft-Gault) 60.0 77.6 BUN/Creatinine Ratio 6 (6-20) Glucose Level 127 mg/dL (70-99) 112 mg/dL (70-99) Lactic Acid Level 1.4 mmol/L (0.4-2.0) Calcium Level 9.2 mg/dL (8.5-10.1) 7.8 mg/dL (8.5-10.1) Total Bilirubin 0.7 mg/dL (0.2-1.0) Aspartate Amino Transf (AST/SGOT) 17 U/L (15-37) Alanine Aminotransferase (ALT/SGPT) 29 U/L (14-59) Alkaline Phosphatase 91 U/L (46-116) Total Protein 8.1 g/dL (6.4-8.2) Albumin 3.3 g/dL (3.4-5.0) Albumin/Globulin Ratio 0.7 (1.0-1.7) Lipase 127 U/L (73-393) Medications Current Medications Sodium Chloride 1,000 ml @ 1,000 mls/hr Q1H IV Last administered on at 14:13; Start 12/31/17 at 13:53; Stop 12/31/17 at 14:52; Status DC Hydromorphone HCl (Dilaudid) 1 mg 1X ONCE IV Last administered on 12/31/17at 14:14; Start 12/31/17 at 14:00; Stop 12/31/17 at 14:01; Status DC Ondansetron HCl (Zofran) 4 mg 1X ONCE IV Last administered on 12/31/17at 14:14 ; Start 12/31/17 at 14:00; Stop 12/31/17 at 14:01; Status DC Ceftriaxone Sodium 50 ml @ 100 mls/hr 1X ONCE IV Last administered on at 15:15; Start 12/31/17 at 14:30; Stop 12/31/17 at 14:59; Status DC Sodium Chloride 1,000 ml @ 1,000 mls/hr 1X ONCE IV Last administered on 12/31at 15:16; Start 12/31/17 at 15:15; Stop 12/31/17 at 16:14; Status DC Ketorolac Tromethamine (Toradol 30mg Vial) 30 mg 1X ONCE IV Last administered on 12/31/17at 15:48; Start 12/31/17 at 15:45; Stop 12/31/17 at 15:46; Status DC Acetaminophen (Tylenol) 650 mg PRN Q6HRS PRN PO FEVER; Start 12/31/17 at 16:15 Ondansetron HCl (Zofran) 4 mg PRN Q6HRS PRN IV NAUSEA/VOMITING; Start at 16:15 Morphine Sulfate (Morphine Sulfate) 2 mg PRN Q2HR PRN IV MODERATE TO SEVERE PAIN Last administered on 01/01/18at 12:49; Start 12/31/17 at 16:15 Tramadol HCl (Ultram) 50 mg PRN Q6HRS PRN PO MILD TO MODERATE PAIN Last administered on 12/31/17at 20:51; Start 12/31/17 at 16:15 Docusate Sodium (Colace) 100 mg PRN DAILY PRN PO CONSTIPATION; Start 12/31/17 at 16:15 Ketorolac Tromethamine (Toradol 15mg Vial) 15 mg PRN Q6HRS PRN IV PAIN Last administered on 01/01/18at 12:49; Start 12/31/17 at 16:15; Stop 01/05/18 at 16 :14 Tamsulosin HCl (Flomax) 0.4 mg QHS PO Last administered on 12/31/17at 20:51; Start 12/31/17 at 21:00 Sodium Chloride 1,000 ml @ 125 mls/hr Q8H IV Last administered on 01/01/18at 08:14; Start 12/31/17 at 16:15 Ceftriaxone Sodium 2 gm/ Dextrose 100 ml @ 200 mls/hr DAILY IV ; Start at 09:00; Status UNV Enoxaparin Sodium (Lovenox 40mg Syringe) 40 mg Q24H SQ Last administered on at 18:12; Start 12/31/17 at 17:00 Lorazepam (Ativan) 2 mg PRN Q4HRS PRN IV ANXIETY / AGITATION Last administered on 01/01/18at 00:28; Start 12/31/17 at 16:15 Acetaminophen/ Hydrocodone Bitart (Lortab 5/325) 1 tab PRN Q4HRS PRN PO SEVERE PAIN Last administered on 12/31/17at 22:50; Start 12/31/17 at 16:15 Ceftriaxone Sodium (Rocephin) 2 gm Q24H IVP ; Start 01/01/18 at 15:00 Nicotine (Nicoderm Cq 14mg) 1 patch PRN DAILY PRN TD SMOKING CESSATION Last administered on 12/31/17at 20:51; Start 12/31/17 at 19:15 Non-Formulary Medication (Dextroamphetamine/ Amphetamine (Adderall 20 Mg Tablet) ) 20 mg DAILY PO ; Start 01/01/18 at 09:00; Status Cancel Fluoxetine HCl (PROzac) 40 mg DAILY PO Last administered on 01/01/18at 08:18; Start 01/01/18 at 09:00 Ondansetron HCl (Zofran) 4 mg PRN Q6HRS PRN IV NAUSEA/VOMITING; Start at 07:15; Stop 01/02/18 at 07:14 Fentanyl Citrate (Fentanyl 2ml Vial) 25 mcg PRN Q5MIN PRN IV MILD PAIN; Start 01/01/18 at 07:15; Stop 01/02/18 at 07:14 Fentanyl Citrate (Fentanyl 2ml Vial) 50 mcg PRN Q5MIN PRN IV MODERATE TO SEVERE PAIN; Start 01/01/18 at 07:15; Stop 01/02/18 at 07:14 Morphine Sulfate (Morphine Sulfate) 1 mg PRN Q10MIN PRN IV SEVERE PAIN; Start 01/01/18 at 07:15; Stop 01/02/18 at 07:14 Ringer's Solution 1,000 ml @ 30 mls/hr Q24H IV ; Start 01/01/18 at 07:15; Stop 01/01/18 at 19:14 Lidocaine HCl (Xylocaine-Mpf 1% 2ml Vial) 2 ml 1X PRN PRN ID IV START; Start 01/01/18 at 07:15; Stop 01/02/18 at 07:14 Hydromorphone HCl (Dilaudid) 0.5 mg PRN Q10MIN PRN IV SEV PAIN, Second choice; Start 01/01/18 at 07:15; Stop 01/02/18 at 07:14 Prochlorperazine Edisylate (Compazine) 5 mg PACU PRN PRN IV NAUSEA, MRX1; Start 01/01/18 at 07:15; Stop 01/02/18 at 07:14 Iohexol (Omnipaque 300 Mg/ml) 100 ml STK-MED ONCE .ROUTE Last administered on 01/01/18at 11:08; Start 01/01/18 at 07:56; Stop 01/01/18 at 07:57; Status DC Dexamethasone Sodium Phosphate (Decadron) 20 mg STK-MED ONCE .ROUTE ; Start at 09:53; Stop 01/01/18 at 09:54; Status DC Ondansetron HCl (Zofran) 4 mg STK-MED ONCE .ROUTE ; Start 01/01/18 at 09:53; Stop 01/01/18 at 09:54; Status DC Propofol 20 ml @ As Directed STK-MED ONCE IV ; Start 01/01/18 at 09:53; Stop 01/01/18 at 09:54; Status DC Lidocaine HCl (Lidocaine Pf 2% Vial) 5 ml STK-MED ONCE .ROUTE ; Start 01/01/18 at 09:53; Stop 01/01/18 at 09:54; Status DC Fentanyl Citrate (Fentanyl 2ml Vial) 100 mcg STK-MED ONCE .ROUTE ; Start at 09:53; Stop 01/01/18 at 09:54; Status DC Midazolam HCl (Versed) 2 mg STK-MED ONCE .ROUTE ; Start 01/01/18 at 09:53; Stop 01/01/18 at 09:54; Status DC Phenylephrine HCl (PHENYLEPHRINE in 0.9% NACL PF) 1 mg STK-MED ONCE IV ; Start 01/01/18 at 11:11; Stop 01/01/18 at 11:12; Status DC Cefazolin Sodium (Ancef) 1 gm STK-MED ONCE .ROUTE ; Start 01/01/18 at 11:12; Stop 01/01/18 at 11:13; Status DC Cefazolin Sodium/ Dextrose 50 ml @ 100 mls/hr 1X ONCE IV Last administered on 01/01/18at 11:08; Start 01/01/18 at 11:30; Stop 01/01/18 at 11:59; Status DC Active Scripts Active Reported Adderall 20 Mg Tablet (Dextroamphetamine/Amphetamine) 20 Mg Tablet 20 Mg PO DAILY Prozac (Fluoxetine Hcl) 40 Mg Capsule 1 Cap PO DAILY Vitals/I & O Vital Sign - Last 24 Hours 12/31/17 12/31/17 12/31/17 12/31/17 14:00 14:45 15:32 16:30 Temp 100.1 100.1 Pulse 122 117 104 101 Resp 20 18 18 16 B/P (MAP) 146/95 (112) 147/81 (103) 144/83 (103) 132/82 (99) Pulse Ox 100 98 98 98 O2 Delivery Room Air Room Air Room Air Room Air 12/31/17 12/31/17 12/31/17 12/31/17 17:40 17:40 18:12 19:00 Temp 99.8 98.6 99.8 98.6 Pulse 98 86 Resp 16 18 B/P (MAP) 141/92 (108) 118/75 (89) Pulse Ox 96 96 97 O2 Delivery Room Air Room Air Room Air 12/31/17 12/31/17 12/31/17 12/31/17 20:10 20:51 22:05 22:50 Resp 18 18 16 O2 Delivery Room Air Room Air Room Air Room Air 12/31/17 12/31/17 01/01/18 01/01/18 23:00 23:59 03:00 07:00 Temp 99.9 99.1 101.9 99.9 99.1 101.9 Pulse 104 106 112 Resp 20 16 20 18 B/P (MAP) 159/90 (113) 146/71 (96) 126/84 (98) Pulse Ox 100 100 90 O2 Delivery Room Air Room Air Room Air Room Air 01/01/18 01/01/18 01/01/18 01/01/18 08:00 09:43 11:34 11:34 Temp 99.8 100.3 99.8 100.3 Pulse 105 93 Resp 18 B/P (MAP) 138/84 117/66 Pulse Ox 92 96 O2 Delivery Room Air Room Air Simple Mask Mask O2 Flow Rate 8 10 01/01/18 01/01/18 01/01/18 01/01/18 11:49 12:04 12:08 12:49 Temp 100.6 100.6 Pulse 93 98 Resp 18 20 16 B/P (MAP) 124/76 118/72 Pulse Ox 94 93 O2 Delivery Simple Mask Room Air Nasal Cannula Nasal Cannula O2 Flow Rate 10 2 2 2.0 Intake and Output 11/12/31/17 01/01/18 15:00 23:00 07:00 Intake Total 2050 ml Balance 2050 ml JOSÉ DOMINGUEZ MD Jan 01, 2018 13:10
[2018-01-01] MEDS: cefTRIAXone IV Push 2 GM VIAL. IVP SCH (16:30)
[2018-01-01] MEDS: ENOXAPARIN 40 MG/0.4 ML SYRINGE. SQ SCH (17:17)
[2018-01-01] MEDS: HYDROcodone/APAP 5/325MG 1 TAB TABLET PO PRN ×2 (17:21→23:00)
[2018-01-01] MEDS: LACTOBACILLUS RHAMNOSUS GG 1 CAPSULE. PO SCH (20:43)
[2018-01-01] MEDS: TAMSULOSIN 0.4 MG CAP.ER.24H. PO SCH (20:43)
[2018-01-02 03:00] VITALS: BP 143/80
[2018-01-02 04:57] LABS: BASO % 0 % (0-3); EOS % 0 % (0-3); HEMATOCRIT 32.8 % (36.0-47.0); HEMOGLOBIN 11.4 g/dL (12.0-15.5); LYMPH # 0.5 x10^3/uL (1.0-4.8); LYMPH % 8 % (24-48); MEAN CORPUSCULAR HEMOGLOBIN 34 pg (25-35); MEAN CORPUSCULAR HGB CONC 35 g/dL (31-37); MEAN CORPUSCULAR VOLUME 98 fL (79-100); MONO # 0.5 x10^3/uL (0.0-1.1); MONO % 7 % (0-9); NEUT # 6.1 x10^3uL (1.8-7.7); NEUT % 85 % (31-73); PLATELET COUNT 173 x10^3/uL (140-400); RED BLOOD COUNT 3.35 x10^6/uL (3.50-5.40); RED CELL DISTRIBUTION WIDTH 13.2 % (11.5-14.5); WHITE BLOOD COUNT 7.2 x10^3/uL (4.0-11.0)
[2018-01-02 05:17] LABS: CALCIUM 8.1 mg/dL (8.5-10.1); CREATININE 0.7 mg/dL (0.6-1.0); GFR 90.5; POTASSIUM 3.8 mmol/L (3.5-5.1)
[2018-01-02 07:00] VITALS: BP 145/89
[2018-01-02] MEDS: LACTOBACILLUS RHAMNOSUS GG 1 CAPSULE. PO SCH (08:34)
[2018-01-02] MEDS: HYDROcodone/APAP 5/325MG 1 TAB TABLET PO PRN ×2 (08:35→15:15)
[2018-01-02] MEDS: FLUoxetine HCL 20 MG CAPSULE PO SCH (08:35)
[2018-01-02] MEDS: IV NORMAL SALINE 1000ML BAG 1,000 ML IV SCH ×2 (08:36→16:15)
[2018-01-02 11:00] VITALS: BP 143/93
[2018-01-02] MEDS: NICOTINE 14MG PATCH. TD PRN (12:18)
--- NOTE | 2018-01-02 14:25 | PDOC ---
PROGRESS NOTE SUBJECTIVE: ROS: ROS: RESPIRATORY: Shortness of breath denies. Cough denies. UROLOGY: Denies blood in urine. Denies difficulty urinating HPI: Right flank pain resolved following ureteral stent placement. No complaints. No fevers x 24 hours. Problems: Problems Medical Problems: (1) Kidney stone on right side Status: Acute (2) Pyelonephritis Status: Acute (3) Urinary tract infection Status: Acute OBJECTIVE: Vital Signs: Vital Signs Date Time Temp Pulse Resp B/P (MAP) Pulse Ox O2 Delivery O2 Flow Rate FiO2 01/02/18 11:00 98.2 84 18 143/93 (110) 95 Room Air 98.2 01/02/18 11:00 Room Air 01/02/18 09:40 94 Room Air 01/02/18 08:35 94 Room Air 01/02/18 07:00 97.9 86 18 145/89 (107) 94 Room Air 97.9 01/02/18 03:00 97.3 81 16 143/80 (101) 94 Room Air 97.3 01/02/18 00:00 14 01/01/18 23:00 97.7 76 18 124/80 (95) 96 Nasal Cannula 2.0 97.7 01/01/18 23:00 16 Room Air 01/01/18 20:05 Room Air 01/01/18 19:00 97.8 83 16 117/74 (88) 100 Nasal Cannula 2.0 97.8 01/01/18 17:21 16 Room Air 01/01/18 15:20 82 115/76 (89) Nasal Cannula 2.0 I & O Intake and Output 01/02/18 07:00 Intake Total 2420 ml Output Total 1600 ml Balance 820 ml Intake Oral 750 ml IV Total 1670 ml Output Urine Total 1600 ml Estimated Blood Loss 0 ml # Voids 2 PHYSICAL EXAM: Physical Exam: General: Pleasant, no acute distress, well groomed Respiratory: unlabored breathing, not using accessory muscles, no crackles or wheezes Cardiovascular: Regular rate and rhythm, no peripheral edema Abdomen: nontender, nondistended, no hepatosplenomegaly, no masses Psych: normal mood, affect. Alert and oriented x 3. LABS: Laboratory Tests Test 12/31/17 13:46 12/31/17 14:00 01/01/18 04:00 01/02/18 04:10 Urine Collection Type Unknown Urine Color Yellow Urine Clarity Cloudy Urine pH 8.0 Urine Specific [place] 1.015 Urine Protein 100 mg/dL (NEG-TRACE) Urine Glucose (UA) Negative mg/dL (NEG) Urine Ketones (Stick) Negative mg/dL (NEG) Urine Blood Moderate (NEG) Urine Nitrite Negative (NEG) Urine Bilirubin Negative (NEG) Urine Urobilinogen Dipstick 0.2 mg/dL (0.2 mg/dL) Urine Leukocyte Esterase Large (NEG) Urine RBC 11-20 /HPF (0-2) Urine WBC >40 /HPF (0-4) Urine Squamous Epithelial Cells Mod /LPF Urine Bacteria 0 /HPF (0-FEW) Urine Hyaline Casts Few /HPF Urine Mucus Mod /LPF White Blood Count 12.1 x10^3/uL (4.0-11.0) 10.2 x10^3/uL (4.0-11.0) 7.2 x10^3/uL (4.0-11.0) Red Blood Count 4.10 x10^6/uL (3.50-5.40) 3.48 x10^6/uL (3.50-5.40) 3.35 x10^6/uL (3.50-5.40) Hemoglobin 13.8 g/dL (12.0-15.5) 11.8 g/dL (12.0-15.5) 11.4 g/dL (12.0-15.5) Hematocrit 40.0 % (36.0-47.0) 34.3 % (36.0-47.0) 32.8 % (36.0-47.0) Mean Corpuscular Volume 98 fL (79-100) 99 fL (79-100) 98 fL (79-100) Mean Corpuscular Hemoglobin 34 pg (25-35) 34 pg (25-35) 34 pg (25-35) Mean Corpuscular Hemoglobin Concent 34 g/dL (31-37) 35 g/dL (31-37) 35 g/dL (31-37) Red Cell Distribution Width 14.0 % (11.5-14.5) 13.8 % (11.5-14.5) 13.2 % (11.5-14.5) Platelet Count 211 x10^3/uL (140-400) 175 x10^3/uL (140-400) 173 x10^3/uL (140-400) Neutrophils (%) (Auto) 85 % (31-73) 81 % (31-73) 85 % (31-73) Lymphocytes (%) (Auto) 6 % (24-48) 8 % (24-48) 8 % (24-48) Monocytes (%) (Auto) 8 % (0-9) 10 % (0-9) 7 % (0-9) Eosinophils (%) (Auto) 0 % (0-3) 0 % (0-3) 0 % (0-3) Basophils (%) (Auto) 1 % (0-3) 1 % (0-3) 0 % (0-3) Neutrophils # (Auto) 10.2 x10^3uL (1.8-7.7) 8.2 x10^3uL (1.8-7.7) 6.1 x10^3uL (1.8-7.7) Lymphocytes # (Auto) 0.8 x10^3/uL (1.0-4.8) 0.8 x10^3/uL (1.0-4.8) 0.5 x10^3/uL (1.0-4.8) Monocytes # (Auto) 1.0 x10^3/uL (0.0-1.1) 1.1 x10^3/uL (0.0-1.1) 0.5 x10^3/uL (0.0-1.1) Eosinophils # (Auto) 0.0 x10^3/uL (0.0-0.7) 0.0 x10^3/uL (0.0-0.7) 0.0 x10^3/uL (0.0-0.7) Basophils # (Auto) 0.1 x10^3/uL (0.0-0.2) 0.1 x10^3/uL (0.0-0.2) 0.0 x10^3/uL (0.0-0.2) Sodium Level 133 mmol/L (136-145) 134 mmol/L (136-145) 139 mmol/L (136-145) Potassium Level 4.0 mmol/L (3.5-5.1) 3.8 mmol/L (3.5-5.1) 3.8 mmol/L (3.5-5.1) Chloride Level 98 mmol/L (98-107) 102 mmol/L (98-107) 105 mmol/L (98-107) Carbon Dioxide Level 29 mmol/L (21-32) 25 mmol/L (21-32) 25 mmol/L (21-32) Anion Gap 6 (6-14) 7 (6-14) 9 (6-14) Blood Urea Nitrogen 6 mg/dL (7-20) 7 mg/dL (7-20) 8 mg/dL (7-20) Creatinine 1.0 mg/dL (0.6-1.0) 0.8 mg/dL (0.6-1.0) 0.7 mg/dL (0.6-1.0) Estimated GFR (Cockcroft-Gault) 60.0 77.6 90.5 BUN/Creatinine Ratio 6 (6-20) Glucose Level 127 mg/dL (70-99) 112 mg/dL (70-99) 180 mg/dL (70-99) Lactic Acid Level 1.4 mmol/L (0.4-2.0) Calcium Level 9.2 mg/dL (8.5-10.1) 7.8 mg/dL (8.5-10.1) 8.1 mg/dL (8.5-10.1) Total Bilirubin 0.7 mg/dL (0.2-1.0) Aspartate Amino Transf (AST/SGOT) 17 U/L (15-37) Alanine Aminotransferase (ALT/SGPT) 29 U/L (14-59) Alkaline Phosphatase 91 U/L (46-116) Total Protein 8.1 g/dL (6.4-8.2) Albumin 3.3 g/dL (3.4-5.0) Albumin/Globulin Ratio 0.7 (1.0-1.7) Lipase 127 U/L (73-393) Microbiology 12/31/17 Blood Culture - Preliminary, Resulted NO GROWTH AFTER 1 DAY MEDICATIONS: Current Medications Medications (Trade) Dose Ordered Sig/Farooq Start Time Stop Time Status Last Admin Dose Admin Acetaminophen (Tylenol) 650 mg PRN Q6HRS PRN 12/31/17 16:15 Acetaminophen/ Hydrocodone Bitart (Lortab 5/325) 1 tab PRN Q4HRS PRN 12/31/17 16:15 01/02/18 08:35 1 TAB Cefazolin Sodium (Ancef) 1 gm STK-MED ONCE 01/01/18 11:12 01/01/18 11:13 DC Cefazolin Sodium/ Dextrose 50 ml @ 100 mls/hr 1X ONCE 01/01/18 11:30 01/01/18 11:59 DC 01/01/18 11:08 100 MLS/HR Ceftriaxone Sodium 2 gm/ Dextrose 100 ml @ 200 mls/hr DAILY 01/01/18 09:00 UNV Ceftriaxone Sodium (Rocephin) 2 gm Q24H 01/01/18 15:00 01/01/18 16:30 2 GM Dexamethasone Sodium Phosphate (Decadron) 20 mg STK-MED ONCE 01/01/18 09:53 01/01/18 09:54 DC Docusate Sodium (Colace) 100 mg PRN DAILY PRN 12/31/17 16:15 Enoxaparin Sodium (Lovenox 40mg Syringe) 40 mg Q24H 12/31/17 17:00 01/01/18 17:17 40 MG Fentanyl Citrate (Fentanyl 2ml Vial) 100 mcg STK-MED ONCE 01/01/18 09:53 01/01/18 09:54 DC Fluoxetine HCl (PROzac) 40 mg DAILY 01/01/18 09:00 01/02/18 08:35 40 MG Hydromorphone HCl (Dilaudid) 0.5 mg PRN Q10MIN PRN 01/01/18 07:15 01/01/18 13:36 DC Iohexol (Omnipaque 300 Mg/ml) 100 ml STK-MED ONCE 01/01/18 07:56 01/01/18 07:57 DC 01/01/18 11:08 7 ML Ketorolac Tromethamine (Toradol 15mg Vial) 15 mg PRN Q6HRS PRN 12/31/17 16:15 01/05/18 16:14 01/01/18 12:49 15 MG Ketorolac Tromethamine (Toradol 30mg Vial) 30 mg 1X ONCE 12/31/17 15:45 12/31/17 15:46 DC 12/31/17 15:48 30 MG Lactobacillus Rhamnosus (Culturelle) 1 cap BID 01/01/18 21:00 01/02/18 08:34 1 CAP Lidocaine HCl (Lidocaine Pf 2% Vial) 5 ml STK-MED ONCE 01/01/18 09:53 01/01/18 09:54 DC Lidocaine HCl (Xylocaine-Mpf 1% 2ml Vial) 2 ml 1X PRN PRN 01/01/18 07:15 01/01/18 13:36 DC Lorazepam (Ativan) 2 mg PRN Q4HRS PRN 12/31/17 16:15 01/01/18 00:28 2 MG Midazolam HCl (Versed) 2 mg STK-MED ONCE 01/01/18 09:53 01/01/18 09:54 DC Morphine Sulfate (Morphine Sulfate) 1 mg PRN Q10MIN PRN 01/01/18 07:15 01/01/18 13:36 DC Nicotine (Nicoderm Cq 14mg) 1 patch PRN DAILY PRN 12/31/17 19:15 01/02/18 12:18 1 PATCH Non-Formulary Medication (Dextroamphetamine/ Amphetamine (Adderall 20 Mg Tablet)) 20 mg DAILY 01/01/18 09:00 Cancel Ondansetron HCl (Zofran) 4 mg STK-MED ONCE 01/01/18 09:53 01/01/18 09:54 DC Phenylephrine HCl (PHENYLEPHRINE in 0.9% NACL PF) 1 mg STK-MED ONCE 01/01/18 11:11 01/01/18 11:12 DC Prochlorperazine Edisylate (Compazine) 5 mg PACU PRN PRN 01/01/18 07:15 01/01/18 13:36 DC Propofol 20 ml @ As Directed STK-MED ONCE 01/01/18 09:53 01/01/18 09:54 DC Ringer's Solution 1,000 ml @ 30 mls/hr Q24H 01/01/18 07:15 01/01/18 13:36 DC Sodium Chloride 1,000 ml @ 125 mls/hr Q8H 12/31/17 16:15 01/02/18 08:36 125 MLS/HR Tamsulosin HCl (Flomax) 0.4 mg QHS 12/31/17 21:00 01/01/18 20:43 0.4 MG Tramadol HCl (Ultram) 50 mg PRN Q6HRS PRN 12/31/17 16:15 12/31/17 20:51 50 MG ASSESSMENT & PLAN Ureteral stone: plan for outpatient ureteroscopy + laser of stone in a few weeks Fever: cultures negative so far. Would still treat with cipro 500 BID x 7 days total antibiotics. ok to d/c from urology perspective. I gave her my card to call for followup appointment. Problem List: Problems Medical Problems: (1) Kidney stone on right side Status: Acute (2) Pyelonephritis Status: Acute (3) Urinary tract infection Status: Acute LORAINE DAVIS MD Jan 02, 2018 14:25
[2018-01-02 15:00] VITALS: BP 146/93
[2018-01-02] MEDS: cefTRIAXone IV Push 2 GM VIAL. IVP SCH (15:00)
[2018-01-02] MEDS ORDERED: CIPR500T PO (16:13)
[2018-01-02] MEDS ORDERED: HYDR-2758 PO (16:13)
[2018-01-02] MEDS ORDERED: CIPROFLOXACIN HCL 250 MG TABLET. PO SCH (16:30)
[2018-01-02] MEDS ORDERED: TAMS0.4C97 PO (16:57)
[2018-01-02] MEDS: ENOXAPARIN 40 MG/0.4 ML SYRINGE. SQ SCH (17:00)
--- NOTE | 2018-01-02 21:10 | PDOC3 ---
Discharge Summary IPC Final Diagnosis Problems Medical Problems: (1) Kidney stone on right side Status: Acute (2) Pyelonephritis Status: Acute (3) Urinary tract infection Status: Acute Brief Hospital Course Ms. Rai is a 47 old male who presented with kidney stone: Admitted and Cystoscopy with right ureteral stent placement and right retrograde pyelogram. Ok for dc with plans for outpt lithotripsy Scheduled Ciprofloxacin Hcl (Ciprofloxacin Hcl), 1 TAB PO BID Dextroamphetamine/Amphetamine (Adderall 20 Mg Tablet), 20 MG PO DAILY, (Reported ) Fluoxetine Hcl (Prozac), 1 CAP PO DAILY, (Reported) Tamsulosin Hcl (Flomax), 0.4 MG PO QHS Scheduled PRN Hydrocodone Bit/Acetaminophen (Hydrocodone-Apap 5-325 ), 1 TAB PO PRN Q4HRS PRN for SEVERE PAIN WIN BRITO MD Jan 02, 2018 21:10
== END 2018-01-02 17:25 | disposition home or self-care (01) | DRG 854 ==
LOC: ER 13:33 → 4 NORTH 15:20
PROVIDERS: ADMIT Internal Medicine; ATTEND Internal Medicine
PROC: 0T768DZ Dilation of Right Ureter with Intraluminal Device, Via Natural or Artificial Opening Endoscopic (ICD-10-PCS; 2018-01-01)
PROC: BT1D1ZZ Fluoroscopy of Right Kidney, Ureter and Bladder using Low Osmolar Contrast (ICD-10-PCS; principal; 2018-01-01 10:00)
DX: A41.9 Sepsis, unspecified organism (principal); N13.6 Pyonephrosis; E44.1 Mild protein-calorie malnutrition; F41.9 Anxiety disorder, unspecified; F32.9 Major depressive disorder, single episode, unspecified; F90.9 Attention-deficit hyperactivity disorder, unspecified type; F17.210 Nicotine dependence, cigarettes, uncomplicated; F43.10 Post-traumatic stress disorder, unspecified; F10.20 Alcohol dependence, uncomplicated; Z87.442 Personal history of urinary calculi; Z90.721 Acquired absence of ovaries, unilateral; Z90.710 Acquired absence of both cervix and uterus; Z68.26 Body mass index [BMI] 26.0-26.9, adult; Z82.49 Family history of ischemic heart disease and other diseases of the circulatory system
CPT/HCPCS: 36415; 74176; 76001; 80048; 80053; 81001; 83605; 83690; 85025; 87040; J0690; J0696; J1100; J1170; J1650; J1885; J2001; J2060; J2250; J2270; J2370; J2405; J2704; J3010; J7030; Q9967

== ENCOUNTER 2018-01-07 19:18 | Emergency (ER) | payer BC ==
[~2018-01-07] VITALS: Ht 157.5 cm; Wt 60.3 kg
[~2018-01-07 19:18] MED LIST: CIPR500T PO; DEXT20TA2 PO; FLUO40CA9 PO; HYDR-2761 PO; TAMS0.4C97 PO
[2018-01-07] MEDS ORDERED: IV NORMAL SALINE 1000ML BAG 1,000 ML IV ONE (20:15)
[2018-01-07] MEDS ORDERED: ONDANSETRON PF 4 MG/2 ML VIAL. IV ONE (20:15)
[2018-01-07] MEDS ORDERED: MORPHINE SULFATE 4 MG/ML VIAL. IV ONE (20:15)
[2018-01-07 20:18] LABS: BASO # 0.1 x10^3/uL (0.0-0.2); BASO % 1 % (0-3); EOS # 0.2 x10^3/uL (0.0-0.7); EOS % 3 % (0-3); HEMATOCRIT 40.8 % (36.0-47.0); HEMOGLOBIN 14.4 g/dL (12.0-15.5); LYMPH % 26 % (24-48); MEAN CORPUSCULAR HEMOGLOBIN 34 pg (25-35); MEAN CORPUSCULAR HGB CONC 35 g/dL (31-37); MEAN CORPUSCULAR VOLUME 97 fL (79-100); MONO # 0.5 x10^3/uL (0.0-1.1); MONO % 7 % (0-9); NEUT # 4.9 x10^3uL (1.8-7.7); NEUT % 63 % (31-73); PLATELET COUNT 403 x10^3/uL (140-400); RED BLOOD COUNT 4.23 x10^6/uL (3.50-5.40); RED CELL DISTRIBUTION WIDTH 13.6 % (11.5-14.5); WHITE BLOOD COUNT 7.8 x10^3/uL (4.0-11.0)
--- NOTE | 2018-01-07 20:21 | PHYS DOC ---
Past Medical History Past Medical History: Anxiety, Depression, Kidney Stone Additional Past Medical Histor: ADHD Past Surgical History: Hysterectomy, Other Additional Past Surgical Histo: Uretal Stents Alcohol Use: Rarely Drug Use: None Adult General Chief Complaint Chief Complaint: ABDOMINAL PAIN HPI HPI Patient is a 47 year old f with one week s/p stent placement d/c sat five days ago told to f/u for stent removal in one week. now p/w cc of since thursday increasing diffuse lower abdo pain. pressure fullness pain, not as sharp as before. abdo feels distended. also gross hematuria. on cipro/flomax, compliant, has not been using lortab due to logistical issue she says using motrin forp ain Review of Systems Review of Systems Constitutional: Denies fever or chills [] Eyes: Denies change in visual acuity, redness, or eye pain [] Cardiovascular: No additional information not addressed in HPI [] Integument: Denies rash or skin lesions [] Neurologic: Denies headache, focal weakness or sensory changes [] All other systems were reviewed and found to be within normal limits, except as documented in this note. Current Medications Current Medications Current Medications Medications (Trade) Dose Ordered Sig/Farooq Start Time Stop Time Status Last Admin Dose Admin Morphine Sulfate (Morphine Sulfate) 4 mg 1X ONCE 01/07/18 20:15 01/07/18 20:16 DC 01/07/18 20:19 4 MG Ondansetron HCl (Zofran) 4 mg 1X ONCE 01/07/18 20:15 01/07/18 20:16 DC 01/07/18 20:19 4 MG Sodium Chloride 1,000 ml @ 1,000 mls/hr 1X ONCE 01/07/18 20:15 01/07/18 21:14 DC 01/07/18 20:18 1,000 MLS/HR Allergies Allergies Allergies Coded Allergies Type Severity Reaction Last Updated Verified No Known Drug Allergies 12/31/17 No Physical Exam Physical Exam Constitutional: Well developed, well nourished, no acute distress, non-toxic appearance. [] HENT: Normocephalic, atraumatic, bilateral external ears normal, oropharynx moist, no oral exudates, nose normal. [] Eyes: PERRLA, EOMI, conjunctiva normal, no discharge. [] Neck: Normal range of motion, no tenderness, supple, no stridor. [] Cardiovascular:Heart rate regular rhythm, no murmur [] Lungs & Thorax: Bilateral breath sounds clear to auscultation [] Abdomen: Bowel sounds normal, soft, ttp noted suprapubic no rebound or guarding Skin: Warm, dry, no erythema, no rash. [] Back: No tenderness, no CVA tenderness. [] Neurologic: Alert and oriented X 3, normal motor function, normal sensory function, no focal deficits noted. [] Current Patient Data Vital Signs Vital Signs Date Time Temp Pulse Resp B/P (MAP) Pulse Ox O2 Delivery O2 Flow Rate FiO2 01/07/18 20:19 18 97 Room Air 01/07/18 19:30 99.1 114 122/84 (97) 99.1 Lab Values Laboratory Tests Test 01/07/18 20:05 White Blood Count 7.8 x10^3/uL (4.0-11.0) Red Blood Count 4.23 x10^6/uL (3.50-5.40) Hemoglobin 14.4 g/dL (12.0-15.5) Hematocrit 40.8 % (36.0-47.0) Mean Corpuscular Volume 97 fL (79-100) Mean Corpuscular Hemoglobin 34 pg (25-35) Mean Corpuscular Hemoglobin Concent 35 g/dL (31-37) Red Cell Distribution Width 13.6 % (11.5-14.5) Platelet Count 403 x10^3/uL (140-400) H Neutrophils (%) (Auto) 63 % (31-73) Lymphocytes (%) (Auto) 26 % (24-48) Monocytes (%) (Auto) 7 % (0-9) Eosinophils (%) (Auto) 3 % (0-3) Basophils (%) (Auto) 1 % (0-3) Neutrophils # (Auto) 4.9 x10^3uL (1.8-7.7) Lymphocytes # (Auto) 2.0 x10^3/uL (1.0-4.8) Monocytes # (Auto) 0.5 x10^3/uL (0.0-1.1) Eosinophils # (Auto) 0.2 x10^3/uL (0.0-0.7) Basophils # (Auto) 0.1 x10^3/uL (0.0-0.2) Prothrombin Time 11.9 SEC (11.7-14.0) Prothrombin Time INR 0.9 (0.8-1.1) Urine Collection Type Unknown Urine Color Red Urine Clarity Bloody Urine pH Urine Specific [place] 1.025 Urine Protein mg/dL (NEG-TRACE) Urine Glucose (UA) mg/dL (NEG) Urine Ketones (Stick) mg/dL (NEG) Urine Blood Large (NEG) Urine Nitrite (NEG) Urine Bilirubin (NEG) Urine Urobilinogen Dipstick mg/dL (0.2 mg/dL) Urine Leukocyte Esterase (NEG) Urine RBC Tntc /HPF (0-2) Urine WBC 11-20 /HPF (0-4) Urine Squamous Epithelial Cells Few /LPF Urine Bacteria 0 /HPF (0-FEW) Sodium Level 138 mmol/L (136-145) Potassium Level 3.6 mmol/L (3.5-5.1) Chloride Level 101 mmol/L (98-107) Carbon Dioxide Level 27 mmol/L (21-32) Anion Gap 10 (6-14) Blood Urea Nitrogen 10 mg/dL (7-20) Creatinine 1.0 mg/dL (0.6-1.0) Estimated GFR (Cockcroft-Gault) 60.0 BUN/Creatinine Ratio 10 (6-20) Glucose Level 104 mg/dL (70-99) H Calcium Level 8.9 mg/dL (8.5-10.1) Total Bilirubin 0.1 mg/dL (0.2-1.0) L Aspartate Amino Transferase (AST) 16 U/L (15-37) Alanine Aminotransferase (ALT) 26 U/L (14-59) Alkaline Phosphatase 96 U/L (46-116) Total Protein 8.5 g/dL (6.4-8.2) H Albumin 3.4 g/dL (3.4-5.0) Albumin/Globulin Ratio 0.7 (1.0-1.7) L Laboratory Tests 01/07/18 20:05 Laboratory Tests 01/07/18 20:05 EKG EKG [] Radiology/Procedures Radiology/Procedures [] Impressions: CT Abdomen without Contrast: Findings: Evaluation of solid organs is limited without contrast. Evaluation of stomach and bowel is limited without oral contrast. Liver: 2 cysts. Spleen: Normal. Pancreas: Normal. Adrenal Glands: Normal. Kidneys: There is a double-J ureteral stent on the right which appears well-positioned. There are tiny nonobstructive stones the renal pelvises bilaterally. There is no free air or free fluid. There is no lymphadenopathy. Impression: Please see CT Pelvis without Contrast. End Impression. CT Pelvis without Contrast: Findings: The urinary bladder appears normal. There is no free fluid. There is no lymphadenopathy. There is no pericolonic inflammation identified. The appendix is not identified. Impression: 1. Right double-J ureteral stent well-positioned. 2. Tiny nonobstructive stones the renal pelvises bilaterally. No acute findings. End impression PQRS Compliance Statement: One or more of the following individualized dose reduction techniques were utilized for this examination: 1. Automated exposure control 2. Adjustment of the mA and/or kV according to patient size 3. Use of iterative reconstruction technique Electronically signed by: Tristian Vicente III, MD (01/07/2018 8:50 PM) [facility] DICTATED and SIGNED BY: TRISTIAN VICENTE III, MD DATE: 01/07/182044 Course & Med Decision Making Course & Med Decision Making Pertinent Labs and Imaging studies reviewed. (See chart for details) 47 yo female presenting with lower abdominal discomfort after his ureteral stent was placed about 6 days ago. She has not been able to fill her pain medication her CT scan shows good stent position improved appearance overall. I think she is having bladder spasm is poorly treated perception for [place] was supplied recommended call urologist tomorrow for removal. There is no fever her creatinine is fine her urine shows hematuria think that she stable for outpatient management she is agreeable return precautions were discussed. Dragon Disclaimer Dragon Disclaimer This electronic medical record was generated, in whole or in part, using a voice recognition dictation system. Departure Departure Impression: Primary Impression: Renal colic Disposition: HOME, SELF-CARE Condition: STABLE Referrals: NO PCP (PCP) Scripts Hydrocodone/Apap 5-325 (NORCO 5-325 TABLET) 1 Each Tablet 1-2 EACH PO PRN Q6HRS PRN for PAIN, #15 as needed for pain Prov: MUNIR QUICK MD 01/07/18 MUNIR QUICK MD Jan 07, 2018 20:21
[2018-01-07 20:28] LABS: CLARITY,URINE BLOODY; COLOR,URINE RED; PROTHROMBIN TIME PATIENT 11.9 SEC (11.7-14.0)
[2018-01-07 20:32] LABS: BACTERIA,URINE 0 /HPF (0-FEW); RBC,URINE TNTC /HPF (0-2); SQUAMOUS EPITHELIAL CELL,UR FEW /LPF
[2018-01-07 20:50] VITALS: BP 131/84
--- NOTE | 2018-01-07 20:54 | RAD ---
Abdominal and Pelvis CT, Without Contrast: History: Severe pain and hematuria Comparison: December 31, 2017. Procedure: Axial images are obtained of the abdomen and pelvis, without IV or oral contrast. CT Abdomen without Contrast: Findings: Evaluation of solid organs is limited without contrast. Evaluation of stomach and bowel is limited without oral contrast. Liver: 2 cysts. Spleen: Normal. Pancreas: Normal. Adrenal Glands: Normal. Kidneys: There is a double-J ureteral stent on the right which appears well-positioned. There are tiny nonobstructive stones the renal pelvises bilaterally. There is no free air or free fluid. There is no lymphadenopathy. Impression: Please see CT Pelvis without Contrast. End Impression. CT Pelvis without Contrast: Findings: The urinary bladder appears normal. There is no free fluid. There is no lymphadenopathy. There is no pericolonic inflammation identified. The appendix is not identified. Impression: 1. Right double-J ureteral stent well-positioned. 2. Tiny nonobstructive stones the renal pelvises bilaterally. No acute findings. End impression PQRS Compliance Statement: One or more of the following individualized dose reduction techniques were utilized for this examination: 1. Automated exposure control 2. Adjustment of the mA and/or kV according to patient size 3. Use of iterative reconstruction technique Electronically signed by: Turner Vicente III, MD (01/07/2018 8:50 PM) [facility]
[2018-01-07 21:11] LABS: CALCIUM 8.9 mg/dL (8.5-10.1); POTASSIUM 3.6 mmol/L (3.5-5.1)
[2018-01-07 21:18] LABS: ALBUMIN 3.4 g/dL (3.4-5.0); ALBUMIN/GLOBULIN RATIO 0.7 (1.0-1.7); TOTAL BILIRUBIN 0.1 mg/dL (0.2-1.0); TOTAL PROTEIN 8.5 g/dL (6.4-8.2)
[2018-01-07] MEDS ORDERED: HYDR-3164 PO (21:18)
== END 2018-01-07 21:35 | disposition home or self-care (01) ==
LOC: ER 19:18
DX: N23 Unspecified renal colic (principal); F41.9 Anxiety disorder, unspecified; F32.9 Major depressive disorder, single episode, unspecified; Z87.442 Personal history of urinary calculi; Z90.710 Acquired absence of both cervix and uterus
CPT/HCPCS: 36415; 74176; 80053; 81001; 85025; 85610; 87086; 96374; 96375; 99284; J2270; J2405; J7030

== ENCOUNTER 2018-09-03 11:29 | Emergency (ER) | payer BC ==
[~2018-09-03] VITALS: Ht 157.5 cm; Wt 65.8 kg
[~2018-09-03 11:29] MED LIST changes: +HYDR-3164 PO
[2018-09-03] MEDS ORDERED: KETOROLAC 30 MG/ML VIAL. IV ONE (12:30)
--- NOTE | 2018-09-03 12:34 | PHYS DOC ---
Past Medical History Past Medical History: Anxiety, Depression, Kidney Stone Additional Past Medical Histor: ADHD Past Surgical History: Hysterectomy, Other Additional Past Surgical Histo: Uretal Stents Alcohol Use: Rarely Drug Use: None Adult General Chief Complaint Chief Complaint: FLANK PAIN HPI HPI Patient is a 48 year old female who presents with complaining of abdomen and back pain. Patient complaining of intermittent episodes of left lower quadrant sharp pain with radiation to left flank for the last 1 week usually lasts for a few minutes and expressed several times a day. Patient states the pain is 7/10 and associated with nausea and urinary frequency. Patient denies vomiting, fever and chills, vaginal bleeding or discharge, diarrhea and constipation, dysuria and hematuria. Patient states she had the same pain previously with kidney stone. Patient said the pain getting better with 1000 mg of Tylenol. Review of Systems Review of Systems Constitutional: Denies fever or chills [] Eyes: Denies change in visual acuity, redness, or eye pain [] HENT: Denies nasal congestion or sore throat [] Respiratory: Denies cough or shortness of breath [] Cardiovascular: No additional information not addressed in HPI [] GI: Reports abdominal pain, nausea, denies vomiting, bloody stools or diarrhea [] : Denies dysuria or hematuria [] Musculoskeletal: Denies back pain or joint pain [] Integument: Denies rash or skin lesions [] Neurologic: Denies headache, focal weakness or sensory changes [] Endocrine: Denies polyuria or polydipsia [] All other systems were reviewed and found to be within normal limits, except as documented in this note. Current Medications Current Medications Current Medications Medications (Trade) Dose Ordered Sig/Farooq Start Time Stop Time Status Last Admin Dose Admin Ketorolac Tromethamine (Toradol 30mg Vial) 30 mg 1X ONCE 09/03/18 12:30 09/03/18 12:31 DC 09/03/18 13:18 30 MG Sodium Chloride 1,000 ml @ 1,000 mls/hr Q1H 09/03/18 12:24 09/03/18 13:23 DC 09/03/18 13:22 1,000 MLS/HR Allergies Allergies Allergies Coded Allergies Type Severity Reaction Last Updated Verified No Known Drug Allergies 12/31/17 No Physical Exam Physical Exam Constitutional: Well developed, well nourished, mild distress, non-toxic appearance. [] HENT: Normocephalic, atraumatic, oropharynx moist. Eyes: PERRLA, EOMI, conjunctiva normal, no discharge. [] Neck: Normal range of motion, no tenderness, supple, no stridor. [] Cardiovascular:Heart rate regular rhythm, no murmur [] Lungs & Thorax: Bilateral breath sounds clear to auscultation [] Abdomen: Bowel sounds normal, soft, no tenderness, no masses, no pulsatile masses. [] Skin: Warm, dry, no erythema, no rash. [] Back: No tenderness, no CVA tenderness. [] Extremities: No tenderness, no cyanosis, no clubbing, ROM intact, no edema. [] Neurologic: Alert and oriented X 3, normal motor function, normal sensory function, no focal deficits noted. [] Psychologic: Affect normal, judgement normal, mood normal. [] Current Patient Data Vital Signs Vital Signs Date Time Temp Pulse Resp B/P (MAP) Pulse Ox O2 Delivery O2 Flow Rate FiO2 09/03/18 12:29 99.1 90 18 128/93 (105) 99 Room Air 99.1 Lab Values Laboratory Tests Test 09/03/18 11:30 09/03/18 11:48 09/03/18 13:20 Urine Collection Type Unknown Urine Color Yellow Urine Clarity Clear Urine pH 8.0 Urine Specific [place] 1.015 Urine Protein Negative mg/dL (NEG-TRACE) Urine Glucose (UA) Negative mg/dL (NEG) Urine Ketones (Stick) Negative mg/dL (NEG) Urine Blood Negative (NEG) Urine Nitrite Negative (NEG) Urine Bilirubin Negative (NEG) Urine Urobilinogen Dipstick 0.2 mg/dL (0.2 mg/dL) Urine Leukocyte Esterase Negative (NEG) Urine RBC 0 /HPF (0-2) Urine WBC 1-4 /HPF (0-4) Urine Squamous Epithelial Cells Many /LPF Urine Bacteria Moderate /HPF (0-FEW) POC Urine HCG, Qualitative Hcg negative (Negative) White Blood Count 7.7 x10^3/uL (4.0-11.0) Red Blood Count 4.30 x10^6/uL (3.50-5.40) Hemoglobin 14.4 g/dL (12.0-15.5) Hematocrit 42.0 % (36.0-47.0) Mean Corpuscular Volume 98 fL (79-100) Mean Corpuscular Hemoglobin 33 pg (25-35) Mean Corpuscular Hemoglobin Concent 34 g/dL (31-37) Red Cell Distribution Width 13.0 % (11.5-14.5) Platelet Count 320 x10^3/uL (140-400) Neutrophils (%) (Auto) 77 % (31-73) H Lymphocytes (%) (Auto) 15 % (24-48) L Monocytes (%) (Auto) 7 % (0-9) Eosinophils (%) (Auto) 1 % (0-3) Basophils (%) (Auto) 1 % (0-3) Neutrophils # (Auto) 5.9 x10^3/uL (1.8-7.7) Lymphocytes # (Auto) 1.1 x10^3/uL (1.0-4.8) Monocytes # (Auto) 0.5 x10^3/uL (0.0-1.1) Eosinophils # (Auto) 0.1 x10^3/uL (0.0-0.7) Basophils # (Auto) 0.1 x10^3/uL (0.0-0.2) Sodium Level 136 mmol/L (136-145) Potassium Level 4.2 mmol/L (3.5-5.1) Chloride Level 100 mmol/L (98-107) Carbon Dioxide Level 30 mmol/L (21-32) Anion Gap 6 (6-14) Blood Urea Nitrogen 12 mg/dL (7-20) Creatinine 0.9 mg/dL (0.6-1.0) Estimated GFR (Cockcroft-Gault) 67.4 BUN/Creatinine Ratio 13 (6-20) Glucose Level 88 mg/dL (70-99) Calcium Level 8.9 mg/dL (8.5-10.1) Total Bilirubin 0.3 mg/dL (0.2-1.0) Aspartate Amino Transferase (AST) 18 U/L (15-37) Alanine Aminotransferase (ALT) 26 U/L (14-59) Alkaline Phosphatase 83 U/L (46-116) Total Protein 8.0 g/dL (6.4-8.2) Albumin 3.6 g/dL (3.4-5.0) Albumin/Globulin Ratio 0.8 (1.0-1.7) L Lipase 275 U/L (73-393) Laboratory Tests 09/03/18 13:20 Laboratory Tests 09/03/18 13:20 EKG EKG [] Radiology/Procedures Radiology/Procedures [][facility] [address] [place] [address] IMAGING REPORT Signed PATIENT: LOGAN GOLDEN ACCOUNT: [id number] : 1970 LOCATION: ER AGE: 48 SEX: F EXAM STATUS: REG ER ORD. PHYSICIAN: SIMBA GILLIAM MD REASON: intermittent left flank pain, history of kidney stone PROCEDURE: CT ABDOMEN PELVIS WO CONTRAST Examination: CT ABDOMEN PELVIS WO CONTRAST History: Intermittent left flank pain Comparison/Correlation: None Findings: Axial images of the abdomen and pelvis were obtained without contrast. Sagittal and coronal reformatted images were provided right breast implant is present. There also appears be left breast is partially visualized and appears to be deformed. Visualized lung bases are clear. Left hepatic lobe segment 4A cyst measuring 2.9 cm is present. Smaller cyst involves the right hepatic lobe inferiorly. Gallbladder fossa is unremarkable. Spleen is normal. Pancreas is normal. Adrenal glands are normal. Right renal calyceal calculus measuring 0.44 cm diameter is present. Left renal 0.2 cm diameter upper pole calyceal calculus is present. Inferior pole calyceal measuring 0.3 cm diameter evident. No hydronephrosis or hydroureter. No radiopaque ureteral calculi. Urinary bladder is unremarkable. Large quantity of stool in the colon noted. No ascites or pelvic free fluid. No inflammatory findings about the cecum. Appendix is unremarkable. Bony structures are unremarkable. A T12 bone island is present. Impression: Nonobstructive renal calculi. Decrease in right renal calculus burden since the prior exam with fewer calculi seen. Large quantity of stool in the colon. No acute inflammatory process or obstruction. PQRS Compliance Statement: One or more of the following individualized dose reduction techniques were utilized for this examination: 1. Automated exposure control 2. Adjustment of the mA and/or kV according to patient size 3. Use of iterative reconstruction technique Electronically signed by: Jaya King MD (09/03/2018 1:44 PM) [id number] DICTATED and SIGNED BY: JAYA KING MD DATE: 09/03/18 1274 Course & Med Decision Making Course & Med Decision Making Pertinent Labs and Imaging studies reviewed. (See chart for details) I've spoken with the patient and/or caregivers. I've explained the patient's condition, diagnosis and treatment plan based on information available to me at this time. I've answered the patient's and/or caregivers questions and addressed any concerns. The patient and/or caregivers have a good understanding the patient's diagnosis, condition and treatment plan as can be expected at this point. Vital signs have been stabilized. The patient's condition is stable for discharge from the emergency department. The patient will pursue further outpatient evaluation with her primary care provider or other designated consulting physician as outlined in the discharge instructions. Patient and/or caregivers are agreeable to this plan of care and follow-up instructions have been explained in detail. The patient and/or caregivers have received these instructions in written format and expressed understanding of these discharge instructions. The patient and her caregivers are aware that if any significant change in condition or worsening of symptoms should prompt him to immediately return to this of the closest emergency depa rtment. If an emergent department is not readily available I would encourage him to call 911. Drew Disclaimer Dragon Disclaimer This electronic medical record was generated, in whole or in part, using a voice recognition dictation system. Departure Departure Impression: Primary Impression: Constipation Additional Impressions: Left lower quadrant pain Left flank pain Disposition: 01 HOME, SELF-CARE (at 1409) Condition: IMPROVED Referrals: NO PCP (PCP) Patient Instructions: Constipation, Adult, Flank Pain Additional Instructions: Drink plenty of liquids Follow-up with your primary care physician in 3-5 days Return to ER if not getting better Scripts Tramadol Hcl (ULTRAM) 50 Mg Tablet 50 MG PO Q6HRS PRN for PAIN, #14 TAB 0 Refills Prov: SIMBA GILLIAM MD 09/03/18 Magnesium Citrate (MAGNESIUM CITRATE) 296 Ml Solution 296 ML PO ONCE for constipation, #296 ML Prov: SIMBA GILLIAM MD 09/03/18 Problem Qualifiers Primary Impression: Constipation Constipation type: unspecified constipation type Qualified Codes: K59.00 - Constipation, unspecified SIMBA GILLIAM MD Sep 03, 2018 12:34
[2018-09-03 13:05] LABS: BILIRUBIN,URINE NEGATIVE (NEG); CLARITY,URINE CLEAR; COLOR,URINE YELLOW; NITRITE,URINE NEGATIVE (NEG); PROTEIN,URINE NEGATIVE (NEG-TRACE); UROBILINOGEN,URINE 0.2 mg/dL (0.2 mg/dL)
[2018-09-03] MEDS: IV NORMAL SALINE 1000ML BAG 1,000 ML IV SCH ×2 (13:18→13:22)
[2018-09-03 13:22] LABS: BACTERIA,URINE MODERATE /HPF (0-FEW); RBC,URINE 0 /HPF (0-2); SQUAMOUS EPITHELIAL CELL,UR MANY /LPF
[2018-09-03 13:37] LABS: BASO # 0.1 x10^3/uL (0.0-0.2); BASO % 1 % (0-3); EOS # 0.1 x10^3/uL (0.0-0.7); EOS % 1 % (0-3); HEMOGLOBIN 14.4 g/dL (12.0-15.5); LYMPH # 1.1 x10^3/uL (1.0-4.8); LYMPH % 15 % (24-48); MEAN CORPUSCULAR HEMOGLOBIN 33 pg (25-35); MEAN CORPUSCULAR HGB CONC 34 g/dL (31-37); MEAN CORPUSCULAR VOLUME 98 fL (79-100); MONO # 0.5 x10^3/uL (0.0-1.1); MONO % 7 % (0-9); NEUT # 5.9 x10^3/uL (1.8-7.7); NEUT % 77 % (31-73); PLATELET COUNT 320 x10^3/uL (140-400); WHITE BLOOD COUNT 7.7 x10^3/uL (4.0-11.0)
[2018-09-03 13:47] LABS: CALCIUM 8.9 mg/dL (8.5-10.1); CREATININE 0.9 mg/dL (0.6-1.0); GFR 67.4; POTASSIUM 4.2 mmol/L (3.5-5.1)
--- NOTE | 2018-09-03 13:47 | RAD ---
Examination: CT ABDOMEN PELVIS WO CONTRAST History: Intermittent left flank pain Comparison/Correlation: None Findings: Axial images of the abdomen and pelvis were obtained without contrast. Sagittal and coronal reformatted images were provided right breast implant is present. There also appears be left breast is partially visualized and appears to be deformed. Visualized lung bases are clear. Left hepatic lobe segment 4A cyst measuring 2.9 cm is present. Smaller cyst involves the right hepatic lobe inferiorly. Gallbladder fossa is unremarkable. Spleen is normal. Pancreas is normal. Adrenal glands are normal. Right renal calyceal calculus measuring 0.44 cm diameter is present. Left renal 0.2 cm diameter upper pole calyceal calculus is present. Inferior pole calyceal measuring 0.3 cm diameter evident. No hydronephrosis or hydroureter. No radiopaque ureteral calculi. Urinary bladder is unremarkable. Large quantity of stool in the colon noted. No ascites or pelvic free fluid. No inflammatory findings about the cecum. Appendix is unremarkable. Bony structures are unremarkable. A T12 bone island is present. Impression: Nonobstructive renal calculi. Decrease in right renal calculus burden since the prior exam with fewer calculi seen. Large quantity of stool in the colon. No acute inflammatory process or obstruction. PQRS Compliance Statement: One or more of the following individualized dose reduction techniques were utilized for this examination: 1. Automated exposure control 2. Adjustment of the mA and/or kV according to patient size 3. Use of iterative reconstruction technique Electronically signed by: Jaya Greenberg MD (09/03/2018 1:44 PM) [id number]
[2018-09-03 13:53] LABS: ALBUMIN 3.6 g/dL (3.4-5.0); ALBUMIN/GLOBULIN RATIO 0.8 (1.0-1.7); TOTAL BILIRUBIN 0.3 mg/dL (0.2-1.0)
[2018-09-03] MEDS ORDERED: TRAM-48 PO (14:12)
[2018-09-03] MEDS ORDERED: MAGN296S9 PO (14:12)
[2018-09-03 15:30] VITALS: BP 118/81
== END 2018-09-03 15:46 | disposition home or self-care (01) ==
LOC: ER 11:29
DX: K59.00 Constipation, unspecified (principal); R35.0 Frequency of micturition; R11.0 Nausea; F41.9 Anxiety disorder, unspecified; F32.9 Major depressive disorder, single episode, unspecified; Z90.710 Acquired absence of both cervix and uterus; Z87.442 Personal history of urinary calculi
CPT/HCPCS: 36415; 74176; 80053; 81001; 81025; 83690; 85025; 87086; 96374; 99285; J1885; J7030

== ENCOUNTER 2020-07-19 13:35 | Emergency (ER) | payer BC, OTHER ==
[~2020-07-19] VITALS: Ht 157.5 cm; Wt 68.0 kg
[~2020-07-19 13:35] MED LIST changes: -CIPR500T PO; +CIPR500T2 PO; +MAGN296S68 PO; +TRAM-48 PO
[2020-07-19 14:37] LABS: BASO # 0.1 x10^3/uL (0.0-0.2); BASO % 1 % (0-3); EOS # 0.1 x10^3/uL (0.0-0.7); EOS % 2 % (0-3); HEMATOCRIT 38.5 % (36.0-47.0); HEMOGLOBIN 13.2 g/dL (12.0-15.5); LYMPH # 1.1 x10^3/uL (1.0-4.8); LYMPH % 20 % (24-48); MEAN CORPUSCULAR HEMOGLOBIN 33 pg (25-35); MEAN CORPUSCULAR HGB CONC 34 g/dL (31-37); MEAN CORPUSCULAR VOLUME 97 fL (79-100); MONO # 0.4 x10^3/uL (0.0-1.1); MONO % 8 % (0-9); NEUT % 70 % (31-73); PLATELET COUNT 237 x10^3/uL (140-400); RED BLOOD COUNT 3.97 x10^6/uL (3.50-5.40); RED CELL DISTRIBUTION WIDTH 12.5 % (11.5-14.5); WHITE BLOOD COUNT 5.6 x10^3/uL (4.0-11.0)
[2020-07-19 14:39] LABS: BILIRUBIN,URINE NEGATIVE (NEG); CLARITY,URINE CLEAR; COLOR,URINE YELLOW; NITRITE,URINE NEGATIVE (NEG); PH,URINE 7.5 (<5.0-8.0); PROTEIN,URINE NEGATIVE (NEG-TRACE); UROBILINOGEN,URINE 0.2 mg/dL (0.2 mg/dL)
[2020-07-19 14:46] LABS: HYALINE CASTS, URINE FEW /HPF
[2020-07-19 14:47] LABS: BACTERIA,URINE FEW /HPF (0-FEW); RBC,URINE 0 /HPF (0-2)
[2020-07-19 14:56] LABS: CALCIUM 8.3 mg/dL (8.5-10.1); CREATININE 0.9 mg/dL (0.6-1.0); GFR 66.8; POTASSIUM 3.9 mmol/L (3.5-5.1)
[2020-07-19] MEDS ORDERED: IV NORMAL SALINE 1000ML BAG 1,000 ML IV ONE (15:00)
[2020-07-19] MEDS ORDERED: METOCLOPRAMIDE HCL 10 MG/2 ML VIAL. IVP ONE (15:00)
[2020-07-19] MEDS ORDERED: KETOROLAC 15 MG/ML VIAL. IVP ONE (15:00)
[2020-07-19 15:02] LABS: ALBUMIN 3.6 g/dL (3.4-5.0); TOTAL BILIRUBIN 0.4 mg/dL (0.2-1.0); TOTAL PROTEIN 7.3 g/dL (6.4-8.2)
--- NOTE | 2020-07-19 15:02 | RAD ---
CT ABDOMEN+PELVIS WO INDICATION: left flank pain eval for ureteral calculi EXAM: Noncontrast CT of the abdomen and pelvis. Coronal and sagittal reformatted images were perform ed. PQRS compliance statement: One or more of the following individualized dose reduction techniques were utilized for this examinat ion: 1. Automated exposure control 2. Adjustment of the mA and/or kV according to patient size 3. Use of iterative reconstruction technique COMPARISON: 09/03/2018 FINDINGS: No free air, free fluid, or fluid collection. Lower chest: The visualized lower lungs are aerated. No pleural or pericardial effusion. ABDOMEN: Liver: Stable hepatic cysts. Gallbladder and biliary: Normal gallbladder without radiopaque stone. Normal caliber bile ducts. Spleen: Normal spleen. Pancreas: The noncontrast pancreas is homogeneous in attenuation without peripancreatic inflammatory changes. Adrenal glands: Normal adrenal glands. Kidneys and ureters: No hydronephrosis. Punctate bilateral nonobstructive renal calculi. GI tract: The stomach is decompressed and poorly evaluated. Normal caliber small bowel and colon. Nor mal appendix. Vascular structures: Normal caliber abdominal aorta. Lymph nodes: No lymphadenopathy in the abdomen or pelvis. PELVIS: Genitourinary system: Urinary bladder is decompressed. Hysterectomy. SKELETAL STRUCTURES AND SOFT TISSUES: No acute osseous abnormality. Right breast prosthesis. Unchange d decompressed left breast prosthesis. IMPRESSION: No hydronephrosis. Punctate bilateral nonobstructive renal calculi. Electronically signed by: Chucky Kaiser MD (07/19/2020 3:00 PM) [id number]
[2020-07-19 15:30] VITALS: BP 142/85
--- NOTE | 2020-07-19 15:35 | PHYS DOC ---
Past Medical History Past Medical History: Anxiety, Depression, Kidney Stone Additional Past Medical Histor: ADHD, BROKEN R ANKLE Past Surgical History: , Hysterectomy, Other Additional Past Surgical Histo: Uretal Stents, R ANKLE SX Smoking Status: Former Smoker Alcohol Use: Occasionally Drug Use: None General Adult EDM: Chief Complaint: FLANK PAIN HPI: HPI: Patient is a 50 year old [f__sex] who presents with [] Review of Systems: Review of Systems: Constitutional: Denies fever or chills Eyes: Denies redness or eye pain HENT: Denies nasal congestion or sore throat Respiratory: Denies cough or shortness of breath Cardiovascular: Denies chest pain or palpitations GI: Denies abdominal pain, nausea, or vomiting : Denies dysuria or hematuria Musculoskeletal: Denies back pain or joint pain Integument: Denies rash or skin lesions Neurologic: Denies headache, focal weakness or sensory changes Complete systems were reviewed and found to be within normal limits, except as documented in this note. Heart Score: C/O Chest Pain: N/A Current Medications: Current Medications Medications (Trade) Dose Ordered Sig/[facility] Start Time Stop Time Status Last Admin Dose Admin Ketorolac Tromethamine (Toradol 15mg Vial) 15 mg 1X ONCE 07/19/20 15:00 07/19/20 15:01 DC 07/19/20 14:53 15 MG Metoclopramide HCl (Reglan Vial) 10 mg 1X ONCE 07/19/20 15:00 07/19/20 15:01 DC 07/19/20 14:52 10 MG Sodium Chloride 1,000 ml @ 1,000 mls/hr 1X ONCE 07/19/20 15:00 07/19/20 15:59 07/19/20 14:52 1,000 MLS/HR Allergies: Allergies: Allergies Coded Allergies Type Severity Reaction Last Updated Verified No Known Drug Allergies 12/31/17 No Physical Exam: PE: Constitutional: Well developed, well nourished, no acute distress, non-toxic appearance HENT: Normocephalic, atraumatic Eyes: PERRL, EOMI, conjunctiva normal, no discharge Neck: Normal range of motion, no tenderness, supple Lungs & Thorax: No respiratory distress, equal chest rise and fall Abdomen: Soft, no tenderness Skin: Warm, dry, no erythema, no rash Back: No tenderness, no CVA tenderness Extremities: No tenderness, ROM intact, no edema Neurologic: Alert and oriented X 3, normal motor function, normal sensory function, no focal deficits noted Psychologic: Affect normal, judgment normal Current Patient Data: Labs: Laboratory Tests Test 07/19/20 14:25 White Blood Count 5.6 x10^3/uL (4.0-11.0) Red Blood Count 3.97 x10^6/uL (3.50-5.40) Hemoglobin 13.2 g/dL (12.0-15.5) Hematocrit 38.5 % (36.0-47.0) Mean Corpuscular Volume 97 fL (79-100) Mean Corpuscular Hemoglobin 33 pg (25-35) Mean Corpuscular Hemoglobin Concent 34 g/dL (31-37) Red Cell Distribution Width 12.5 % (11.5-14.5) Platelet Count 237 x10^3/uL (140-400) Neutrophils (%) (Auto) 70 % (31-73) Lymphocytes (%) (Auto) 20 % (24-48) L Monocytes (%) (Auto) 8 % (0-9) Eosinophils (%) (Auto) 2 % (0-3) Basophils (%) (Auto) 1 % (0-3) Neutrophils # (Auto) 4.0 x10^3/uL (1.8-7.7) Lymphocytes # (Auto) 1.1 x10^3/uL (1.0-4.8) Monocytes # (Auto) 0.4 x10^3/uL (0.0-1.1) Eosinophils # (Auto) 0.1 x10^3/uL (0.0-0.7) Basophils # (Auto) 0.1 x10^3/uL (0.0-0.2) Urine Collection Type Unknown Urine Color Yellow Urine Clarity Clear Urine pH 7.5 (<5.0-8.0) Urine Specific [place] 1.025 (1.000-1.030) Urine Protein Negative mg/dL (NEG-TRACE) Urine Glucose (UA) Negative mg/dL (NEG) Urine Ketones (Stick) Negative mg/dL (NEG) Urine Blood Negative (NEG) Urine Nitrite Negative (NEG) Urine Bilirubin Negative (NEG) Urine Urobilinogen Dipstick 0.2 mg/dL (0.2 mg/dL) Urine Leukocyte Esterase Negative (NEG) Urine RBC 0 /HPF (0-2) Urine WBC 1-4 /HPF (0-4) Urine Squamous Epithelial Cells Mod /LPF Urine Bacteria Few /HPF (0-FEW) Urine Hyaline Casts Few /HPF Urine Mucus Marked /LPF Sodium Level 139 mmol/L (136-145) Potassium Level 3.9 mmol/L (3.5-5.1) Chloride Level 104 mmol/L (98-107) Carbon Dioxide Level 25 mmol/L (21-32) Anion Gap 10 (6-14) Blood Urea Nitrogen 9 mg/dL (7-20) Creatinine 0.9 mg/dL (0.6-1.0) Estimated GFR (Cockcroft-Gault) 66.8 BUN/Creatinine Ratio 10 (6-20) Glucose Level 115 mg/dL (70-99) H Calcium Level 8.3 mg/dL (8.5-10.1) L Magnesium Level 2.0 mg/dL (1.8-2.4) Total Bilirubin 0.4 mg/dL (0.2-1.0) Aspartate Amino Transferase (AST) 31 U/L (15-37) Alanine Aminotransferase (ALT) 45 U/L (14-59) Alkaline Phosphatase 68 U/L (46-116) Total Protein 7.3 g/dL (6.4-8.2) Albumin 3.6 g/dL (3.4-5.0) Albumin/Globulin Ratio 1.0 (1.0-1.7) Lipase 158 U/L (73-393) Laboratory Tests 07/19/20 14:25 Laboratory Tests 07/19/20 14:25 Vital Signs: Vital Signs Date Time Temp Pulse Resp B/P (MAP) Pulse Ox O2 Delivery O2 Flow Rate FiO2 07/19/20 14:12 98.6 84 12 133/91 (105) 98 Room Air 98.6 EKG: EKG: [] Radiology/Procedures: Radiology/Procedures: PROCEDURE: CT ABDOMEN PELVIS WO CONTRAST CT ABDOMEN+PELVIS WO INDICATION: left flank pain eval for ureteral calculi EXAM: Noncontrast CT of the abdomen and pelvis. Coronal and sagittal reformatted images were performed. PQRS compliance statement: One or more of the following individualized dose reduction techniques were utilized for this examination: 1. Automated exposure control 2. Adjustment of the mA and/or kV according to patient size 3. Use of iterative reconstruction technique COMPARISON: 09/03/2018 FINDINGS: No free air, free fluid, or fluid collection. Lower chest: The visualized lower lungs are aerated. No pleural or pericardial effusion. ABDOMEN: Liver: Stable hepatic cysts. Gallbladder and biliary: Normal gallbladder without radiopaque stone. Normal caliber bile ducts. Spleen: Normal spleen. Pancreas: The noncontrast pancreas is homogeneous in attenuation without peripancreatic inflammatory changes. Adrenal glands: Normal adrenal glands. Kidneys and ureters: No hydronephrosis. Punctate bilateral nonobstructive renal calculi. GI tract: The stomach is decompressed and poorly evaluated. Normal caliber small bowel and colon. Normal appendix. Vascular structures: Normal caliber abdominal aorta. Lymph nodes: No lymphadenopathy in the abdomen or pelvis. PELVIS: Genitourinary system: Urinary bladder is decompressed. Hysterectomy. SKELETAL STRUCTURES AND SOFT TISSUES: No acute osseous abnormality. Right breast prosthesis. Unchanged decompressed left breast prosthesis. IMPRESSION: No hydronephrosis. Punctate bilateral nonobstructive renal calculi. Electronically signed by: Chucky Kaiser MD (07/19/2020 3:00 PM) [id number] Course & Med Decision Making: Course & Med Decision Making Pertinent Labs and Imaging studies reviewed. (See chart for details) [] Dragon Disclaimer: Dragon Disclaimer: This electronic medical record was generated, in whole or in part, using a voice recognition dictation system. Departure Departure Impression: Primary Impression: Flank pain Disposition: 01 HOME / SELF CARE / HOMELESS Condition: STABLE Referrals: NO PCP (PCP) SUSI BRAVO MD Patient Instructions: Flank Pain, [id number] Additional Instructions: Increase fluid hydration. Use over the counter Tylenol and/or Ibuprofen for pain or discomfort. DION MENDEZ DO Jul 19, 2020 15:35
== END 2020-07-19 15:58 | disposition home or self-care (01) ==
LOC: ER 13:35
DX: R10.9 Unspecified abdominal pain (principal); Z87.891 Personal history of nicotine dependence; Z87.442 Personal history of urinary calculi; Z96.0 Presence of urogenital implants; Z90.710 Acquired absence of both cervix and uterus
CPT/HCPCS: 36415; 74176; 80053; 81001; 83690; 83735; 85025; 96374; 96375; 99284; J1885; J2765; J7030